=== PATIENT | male | born 1950 | race Caucasian/White ===

== ENCOUNTER 2019-11-11 09:07 | Outpatient (CLI) | payer MEDICARE, SELFPAY ==
--- NOTE | 2019-11-20 12:49 | SLEEP_ITS ---
BiPAP titration. DATE OF STUDY: 11/11/2019 REASON FOR THE STUDY: Complex sleep apnea HISTORY: This patient is a 69-year-old male, 73 inches tall, weighing 199 pounds with a body mass index of 26.3. On a prior study 10/02/2019, he underwent a full night CPAP titration for severe obstructive sleep apnea syndrome but had an incomplete titration. Central apneas emerged during the study. He had a maximum pressure of 13 cm with persistent central apneas, then was switched to bilevel . His AHI remained elevated at 20.1. On his initial study 08/20/2019, his AHI was 34.5 with the lowest sat of 84% on a home sleep test. On the initial study, he had 203 apneas, 105 were obstructive, 65 were central, and 33 were mixed. So on the first one, his sleep was evenly split so he definitely has complex sleep apnea. MEDICAL COMORBIDITIES: Snoring, heartburn, hypertension, gastroesophageal reflux disease. Kidney disease. MEDICATIONS: Losartan. HABITS: Daily caffeine, occasional alcohol. No nicotine. DESCRIPTION OF THE STUDY: On the Philadelphia Sleepiness Scale, the score was 15. This was conducted as a full night CPAP-BiPAP titration using the Rocketrip multiple channel system including EOG, EEG, submental EMG, EKG, nasal and oral airflow using thermistors, nasal pressure sensors, chest and abdominal belts, body position data, pulse oximetry, and video monitoring. The study was scored using CMS guidelines. Duration of the study was 482 minutes. Sleep time was 316 minutes. Sleep efficiency was 65.6%. Sleep latency was 7.9 minutes. REM latency was 102 minutes. He had 37 awakenings and spent 33.3% of the study awake after sleep onset 158 minutes. Sleep architecture showed 6.9% stage I sleep, 33.1% stage II sleep, 2.5% stage III sleep, and 24.2% stage REM. He spent 27.6% of the study supine, the remainder was nonsupine. He had 4 REM cycles that were increasingly denser and better consolidated throughout the study. The overall AHI was 44.2. The supine REM AHI was 64.7, which was due to 49 central apneas, 6 mixed apneas. The non-supine REM data showed 11 central apneas, 2 mixed apneas, 3 obstructive apneas for an index of 15.1. In supine non-REM, he had 1 obstructive apnea, 81 central apneas, 30 mixed apneas for an index of 84.4. In a nonsupine non-REM, he had 38 central apneas, 9 mixed apneas, 2 obstructive hypopneas, and 1 central hypopnea for an index of 24.6. The supine index was 76.7. Non-supine index was 21.4. There were 150 desaturations of 4% or greater for an index of 18.7. The REM desaturation index was 18.3, non-REM desaturation index 33.9. The mean saturation was 93%. Minimum saturation 87%. The patient spent 0.3 minutes below 88%, 0.1% of the study. AROUSALS: 181 arousals for an index of 22.5. He had 55 apneas causing arousals for an index of 6.8, 1 snore causing an arousal index of 0.1, 47 spontaneous arousals causing index of 5.9, 78 limb movements causing arousal for an index of 9.7. LIMB MOVEMENTS: 594 limb movements for an index of 112.8, which is exceedingly high. There was 1 periodic limb movement for an index of 0.2. EKG: Sinus rhythm with a mean heart rate of 68 and 2nd degree AV block noted at 2:44 am. There were 3 P-waves consecutively without transmission of a QRS. This also occurred on Epoch 748. EEG: Unremarkable. During this titration, the patient wore a small Sahra View full face mask, started at pressure of 12/8 and increased to 15/9. At that setting, the patient had 1 hour 43 minutes in bed, 56 minutes of REM or 42 minutes of non-REM, 21 central apneas, 3 mixed apneas, 4 hypopneas for an index of 17. Minimum saturation was 90%. The sleep efficiency was 96%. Review of the AHI at the various levels indicate that th
== END 2019-11-11 09:08 | disposition home or self-care (01) ==
LOC: ANHCSM 09:07
PROVIDERS: Visit Provider Family Medicine
DX: G47.30 Sleep apnea, unspecified (principal); G47.37 Central sleep apnea in conditions classified elsewhere
CPT/HCPCS: 95811

== ENCOUNTER 2020-01-15 08:35 | Outpatient (CLI) | payer MEDICARE, SELFPAY ==
--- NOTE | 2020-01-15 08:40 | ECHO_ITS ---
Patient Info Name: Lorenzo Dee Age: 69 years : 1950 Gender: Male Ht: 74 in Wt: 200 lbs BSA: 2.18 m2 HR: 75 bpm BP: 139 / 95 mmHg Technical Quality: Fair Exam Date: 01/15/2020 8:51 AM Exam Location: [facility] Patient Status: Outpatient Admit Date: 01/15/2020 Staff Ordering Physician: Albert Dey DO Medical Examiner: Roxie Baxter RDCS Attending Provider: Albert Dey DO Referring Physician: Tiburcio SAMANIEGO; Exam Type: CA echo doppler color flow Study Info Indications I35.1 - Nonrheumatic aortic (valve) insufficiency Complete two-dimensional, color flow and Doppler transthoracic echocardiogram is performed. Summary 1. Left ventricular chamber dimension is normal. 2. Left ventricular systolic function is normal, estimated at 60-65%. 3. The left ventricular diastolic function is grade I diastolic dysfunction. 4. E/e' 10 is mildly elevated. 5. There is mild aortic valve sclerosis. 6. There is mild to moderate aortic valve regurgitation. 7. No pulmonary hypertension, estimated pulmonary arterial systolic pressure is 15 mmHg. 8. The aortic root size at the sinus of Valsalva is moderately dilated at 4.5 cm. Left Ventricle E/e' 10 is mildly elevated. Left ventricular chamber dimension is normal. Left ventricular systolic function is normal, estimated at 60-65%. The left ventricular diastolic function is grade I diastolic dysfunction. Right Ventricle Right ventricular chamber dimension is normal. Right ventricular systolic function is normal. Left Atria Left atrial chamber dimension is normal. Right Atria Right atrial chamber dimension is normal. Aortic Valve The aortic valve is trileaflet. There is mild aortic valve sclerosis. There is no aortic valve stenosis. There is mild to moderate aortic valve regurgitation. Pulmonic Valve There is no pulmonic regurgitation. Mitral Valve There is no mitral valve stenosis. There is no mitral valve regurgitation. Tricuspid Valve There is no tricuspid valve regurgitation. No pulmonary hypertension, estimated pulmonary arterial systolic pressure is 15 mmHg. Pericardium/Pleural There is no pericardial effusion. Inferior Vena Cava Normal inferior vena cava with >50% collapse upon inspiration consistent with normal right atrial pressure, 5 mmHg. Aorta The aortic root size at the sinus of Valsalva is moderately dilated at 4.5 cm. Left Ventricular Outflow Tract Name Value Normal LVOT 2D LVOT Diameter 3.4 cm LVOT Doppler LVOT Peak Gradient 4 mmHg LVOT Mean Gradient 2 mmHg LVOT VTI 20 cm LVOT VTI/AV VTI Ratio 0.8 LVOT Stroke Volume 187 ml LVOT CO 12.5 l/min LVOT CI 5.7 l/min/m2 Pulmonic Valve Name Value Normal RVOT Doppler ----
== END 2020-01-15 08:36 | disposition home or self-care (01) ==
PROVIDERS: PCP Family Medicine; Visit Provider Internal Medicine Cardiovascular Disease
DX: I35.1 Nonrheumatic aortic (valve) insufficiency (principal)
CPT/HCPCS: 93306

== ENCOUNTER 2020-01-26 08:34 | Outpatient (CLI) | payer MEDICARE, SELFPAY ==
--- NOTE | ~2020-01-26 | CT_ITS ---
EXAMINATION: CTA chest DATE: 01/26/2020 09:43 INDICATION: Aortic root aneurysm TECHNIQUE: Computed tomographic angiography (CTA) of the chest was performed without and with 100 mL Omnipque-350 intravenous contrast. Maximum intensity projection 3D-reconstructions of the aorta and o ther arteries were constructed by the technologist on a separate workstation. The dose-length product (DLP) was 595.53 mGy-cm. Automated exposure control and iterative reconstruction technique were empl oyed. COMPARISON: None. FINDINGS: The supravalvular ascending aorta measures 4.0 x 3.8 cm. The ascending aorta measures 3.9 x 3.6 cm at the level of the main pulmonary artery. There is no dissection. There is chronic scarring/ atelectasis of the right lung. The lungs are free of acute opacities. There is no pleural effusion or pneumothorax. No pathologically enlarged thoracic lymph nodes are identified. The heart size is norm al. The gallbladder is surgically absent. Punctate calcifications of the spleen are consistent with h ealed granulomatous disease. There is a partially imaged 6.4 cm cyst of the right kidney. There is mi ld thoracic spondylosis. IMPRESSION: 1. Fusiform dilatation of the aortic root which measures 4 cm. No dissection. Reviewed, dictated and finalized at location B.
[2020-01-26 09:18] LABS: Estimated Glomerular Filt Rate 40
== END 2020-01-26 08:35 | disposition home or self-care (01) ==
LOC: ANHIMG 08:38
PROVIDERS: PCP Family Medicine; Visit Provider Internal Medicine Cardiovascular Disease
DX: I71.9 Aortic aneurysm of unspecified site, without rupture (principal)
CPT/HCPCS: 36415; 71275; Q9967

== ENCOUNTER 2022-12-24 08:37 | Outpatient (CLI) | payer MEDICARE, SELFPAY ==
--- NOTE | 2022-12-24 08:55 | ECHO_ITS ---
Patient Info Name: Lorenzo Dee Age: 72 years : 1950 Gender: Male Ht: 73 in Wt: 200 lbs BSA: 2.17 m2 HR: 60 bpm BP: 147 / 81 mmHg Technical Quality: Fair Exam Date: 12/24/2022 9:05 AM Exam Location: [facility] Patient Status: Outpatient Admit Date: 12/24/2022 Staff Ordering Physician: Albert Dey DO Clinical Team Manager: María Lau RDCS Attending Provider: Albert Dey DO Referring Physician: Tiburcio SAMANIEGO; Exam Type: CA echo doppler color flow Study Info Indications I35.1 - Nonrheumatic aortic (valve) insufficiency Complete two-dimensional, color flow and Doppler transthoracic echocardiogram is performed. Summary 1. Complete two-dimensional, color flow and Doppler transthoracic echocardiogram is performed. 2. Left ventricular chamber dimension is normal. 3. Left ventricular systolic function is normal, estimated at 65-70%. 4. The left ventricular diastolic function is grade I diastolic dysfunction. 5. E/e' 8 is minimally elevated. 6. There is mild aortic valve sclerosis. 7. There is mild to moderate aortic valve regurgitation. 8. There is trace mitral valve regurgitation. 9. No pulmonary hypertension, estimated pulmonary arterial systolic pressure is 38 mmHg. 10. The aortic root size at the sinus of Valsalva is moderately dilated at 4.5 cm. 11. The prox ascending aorta size is mildly dilated at 4.2 cm. Left Ventricle E/e' 8 is minimally elevated. Left ventricular chamber dimension is normal. Left ventricular systolic function is normal, estimated at 65-70%. The left ventricular diastolic function is grade I diastolic dysfunction. Right Ventricle Right ventricular chamber dimension is normal. Right ventricular systolic function is normal. Left Atria Left atrial chamber dimension is normal. Right Atria Right atrial chamber dimension is normal. Aortic Valve The aortic valve is trileaflet. There is mild aortic valve sclerosis. There is no aortic valve stenosis. There is mild to moderate aortic valve regurgitation. Pulmonic Valve There is no pulmonic regurgitation. Mitral Valve There is no mitral valve stenosis. There is trace mitral valve regurgitation. Tricuspid Valve There is no tricuspid valve regurgitation. No pulmonary hypertension, estimated pulmonary arterial systolic pressure is 38 mmHg. Pericardium/Pleural There is no pericardial effusion. Inferior Vena Cava Normal inferior vena cava with >50% collapse upon inspiration consistent with normal right atrial pressure, 5 mmHg. Aorta The aortic root size at the sinus of Valsalva is moderately dilated at 4.5 cm. The prox ascending aorta size is mildly dilated at 4.2 cm. Left Ventricular Outflow Tract Name Value Normal LVOT 2D LVOT Diameter 2.1 cm LVOT Doppler LVOT Peak Gradient 5 mmHg LVOT Mean Gradient 3 mmHg LVOT VTI 24 cm LVOT VTI/AV VTI Ratio 1.0 LVOT Stroke Volume 84 ml Pulmonic Valve
== END 2022-12-24 08:38 | disposition home or self-care (01) ==
PROVIDERS: PCP Family Medicine; Visit Provider Internal Medicine Cardiovascular Disease
DX: I35.1 Nonrheumatic aortic (valve) insufficiency (principal)
CPT/HCPCS: 93306

== ENCOUNTER 2023-11-19 08:19 | Outpatient (CLI) | payer MEDICARE, SELFPAY | END 2023-11-19 08:20 | disposition home or self-care (01) | PROVIDERS: PCP Family Medicine; Visit Provider Physician Assistant Medical | DX: H90.3 Sensorineural hearing loss, bilateral (principal) | CPT/HCPCS: 92557; 92567 ==

== ENCOUNTER 2023-11-19 09:36 | Outpatient (CLI) | payer MEDICARE, SELFPAY ==
--- NOTE | 2023-11-19 09:44 | ECG_ITS ---
Measurements Intervals Nice Rate: 79 P: 0 [place]: 196 QRS: -2 QRSD: 87 T: 59 QT: 385 QTc: 442 Interpretive Statements SINUS RHYTHM NONSPECIFIC T-WAVE ABNORMALITY NO PREVIOUS ECG AVAILABLE FOR COMPARISON Electronically Signed On 11-19-2023 13:51:00 BARK GRINDER by Ronen Calderón M.D.
[2023-11-19 10:28] LABS: Prothrombin Time 13.5 Seconds (11.1-14.7)
[2023-11-19 10:29] LABS: Partial Thromboplastin Time 29.7 SECONDS (22.3-36.8)
== END 2023-11-19 09:37 | disposition home or self-care (01) ==
LOC: ANHSURGERY 09:39
PROVIDERS: Anesthesiology; PCP Family Medicine; Visit Provider Surgery
DX: I12.9 Hypertensive chronic kidney disease with stage 1 through stage 4 chronic kidney disease, or unspecified chronic kidney disease (principal); N18.31 Chronic kidney disease, stage 3a; K43.6 Other and unspecified ventral hernia with obstruction, without gangrene; Z01.818 Encounter for other preprocedural examination
CPT/HCPCS: 36415; 85610; 85730; 86850; 86900; 86901; 93005

== ENCOUNTER 2023-11-27 01:00 | Day surgery (SDC) | payer MEDICARE, SELFPAY ==
[2023-11-13 09:24] VITALS: BMI 26.4
--- NOTE | 2023-11-13 09:47 | PC.NURSE ---
Report to the Outpatient Waiting Room, entrance under the green pavilion located off [facility], at time __7:30am on date __11/27/23 . Planned Procedure Time: __9:30am . Time changes happen often and if your time is changed the preop area will call you the afternoon before. - You and your visitor will be asked to self-screen and do not enter if you have any COVID symptoms. - A mask is optional within the hospital at this time. Patients may have clear liquids (water, carbonated beverages, clear teas, apple juice) until 3 hours prior to surgery with a maximum of 20 ounces. - No food from midnight until time of surgery. Take the following medications with a SIP of water the morning of surgery: ___NONE DO NOT STOP ANY OF YOUR OTHER PRESCRIPTION MEDICATIONS PRIOR TO SURGERY ?EXCEPT THE FOLLOWING Medications to discontinue per physician __HOLD ALL VITAMINS/SUPPLEMENTS 3 DAYS PRE-OP PER ANESTHESIA- LAST DOSE 11/23/23. DECREASE ASPIRIN 325MG TO 81MG DAILY 7 DAYS PRE-OP PER DR EDMOND. DECREASE DOSE STARTING 11/20/23. (PATIENT IS CALLING DR RILEY TO CONFIRM REDUCTION IS OKAY). Please no make-up, nail grenadian, hairspray, perfume, deodorant, or body powder the day of surgery. No jewelry (including any body piercings) or valuables the day of surgery, leave them at home. Please take a shower or bath the night before, or the morning of, surgery with an antibacterial soap. Wear comfortable, loose fitting clothing. - Jewelry must be removed prior to entering the operating room. Rings and piercings that are not removed may be cut off. - The hospital will not accept responsibility for valuables. - Please leave all valuables, including medications, at home the day of surgery. If you are going home after surgery, a licensed emt driver must drive you home. - NO public transportation without another adult if you receive anesthesia. - We recommend that an adult stay with you for 24 hours following discharge. - We also recommend that you do not drive, make important decision, drink alcoholic beverages, or take any drugs that were not prescribed by your health care provider for at least 24 hours after your discharge time. Follow any additional instructions given to you from your surgeon. If you or anyone in your household have experienced Covid symptoms in the past week, please notify your surgeon or the nurse liaison at the phone number below for possible testing. Telephone instructions given to ____PATIENT and asked if any additional questions and then verbalized understanding. Patient advised to call surgeon office or pre surgery nurse liaison [phone] if any additional questions.
--- NOTE | 2023-11-26 15:00 | WPDANESEPPF ---
Anes - Initial Pre Proc Eval Procedure: Operation Date: 11/27/23 09:30 Proposed Procedures p Robotic Assisted Laparoscopic Incarcerated Ventral Hernia Repair with Mesh, Possible Open - Papa Burton MD Date/Time: 11/26/23 15:00 Surgeon: Papa Burton MD Pre Op Diagnosis: Incarcerated Ventral Hernia Patient Data Age: 73 Gender: M Height: 1.85 m Weight: 91 kg Allergies Allergy/AdvReac Type Severity Reaction Status Date / Time No Known Allergies Allergy Mild Verified 11/27/23 09:02 Home Medications Medication Instructions Recorded Confirmed Type cholecalciferol (vitamin D3) 25 25 mcg PO DAILY 12/17/19 11/27/23 History mcg (1,000 unit) capsule aspirin 325 mg tablet,delayed 325 mg PO DAILY 10/26/21 11/27/23 History release azelastine 137 mcg (0.1 %) nasal 1 spray intranasal Q12H #30 mL 11/04/23 11/27/23 Rx spray aerosol omega 3-zld-zoo-fish oil 1,600 5 ml PO DAILY 11/07/23 11/27/23 History mg-500 mg-800 mg/5 mL oral liquid amlodipine 5 mg tablet 5 mg PO HS 11/13/23 11/27/23 History zolpidem 10 mg tablet 5 mg PO QHS PRN insomnia 11/13/23 11/27/23 History Patient hx anesthesia problems: none Family hx anesthesia problems: none Results Review: All pre-operative results and documents have been reviewed as part of the pre-operative evaluation. [facility] Past Medical History Medical History (Updated 11/26/23 @ 15:00 by Chucky Medeiros DO) Aortic regurgitation Broken wrist Complex sleep apnea syndrome Dyslipidemia HTN (hypertension) PAF (paroxysmal atrial fibrillation) Plantar fasciitis Second degree heart block Stage 3a chronic kidney disease Umbilical hernia Surgical History Surgical History History of cholecystectomy History of hernia surgery Family History Family History Father Carcinoma of colon Sibling Family history of primary malignant neoplasm of liver Family history of lymphoma Sibling Acute myocardial infarction Social History Social History (Updated 11/21/23 @ 08:37 by Tere Connelly CMA) Smoking packs per day: 1 Smoking cigarettes per day: 20.0 Years smoked: 10 Smoking pack-years: 10.00 Smoking status: Former smoker Tobacco type: cigarettes Second hand tobacco smoke exposure: No Smoking end date: 04/13/88 Alcohol intake: current Drinks per week: 14 Substance use: never Substance use type: does not use Do You Feel Safe in your Home?: Yes Lack of Transportation: No Lack of Food: Never True Current Housing: I Have Housing Concerned About Future Housing: No Difficulty Paying Gas/Electric Bills: No Difficulty Paying for Meds: No Currently Unemployed: No Education: Master's Degree or Higher Difficulty w/ Childcare or Family Care: No Living arrangements: with family Additional living arrangements comments: Occupation/Education: retired Gender identity (if verbalized by the patient): Male Spiritual care concerns: No Agree to blood products: Yes Anes - Eval Final PreProcedure Day of Procedure 11/26/23 15:00 Patient weight: overweight Heart: regular rate and rhythm Lungs: clear to auscultation Airway: Mallampati scale class III Neurological: alert and oriented Last oral intake: >/= 8 hours ASA classification: III Emergent: no Anesthetic plan: proceed Anesthesia type and monitoring: general ETT and standard monitoring Results Review: All pre-operative results and documents have been reviewed as part of the pre-operative evaluation. Informed Consent: The patient's anesthetic plan and its attendant risks and benefits were discussed with the patient/family/POA. Questions were solicited and answers provided to the satisfaction of the patient/family/POA.
[2023-11-27] VITALS (11 sets, daily range): BP systolic 115–139; BP diastolic 67–88; PULSE 58–80; RESP 14–17; TEMP 36.1–36.6; O2SAT 91–97
[2023-11-27] MEDS: LACTATED RINGERS 1,000 ML 30 ML IV CONT ×2 (08:30→13:38)
[2023-11-27] MEDS: KETOROLAC 15 MG/ML VIAL (*BKC) IV PUSH ×2 (08:45→15:18)
[2023-11-27] MEDS: ACETAMINOPHEN 500 MG TABLET 1000 MG PO ×2 (08:45→15:30)
--- NOTE | 2023-11-27 09:43 | WPDHPUPDATE1 ---
History and Physical Update Update Date/Time: 11/27/23 09:43 History and Physical has been reviewed, including an updated exam of the patient. There are NO changes in the patient's condition. Risks, benefits, and alternatives have been discussed and questions answered. Patient agrees to proceed with procedure.
[2023-11-27] MEDS: ceFAZolin 2 GM/D5W 50 ML 2 GM/50 ML BAG IVPB (09:51)
[2023-11-27] MEDS: LIDO 1%/EPINEPHRINE 1:100,000 50 ML VIAL 30 ML INFILTRATE (10:39)
[2023-11-27] MEDS: oxyCODONE HCL (*CRX) 5 MG TAB IR PO (14:53)
[2023-11-27] MEDS: fentaNYL CITRATE INJ (*CRX) 100 MCG/2 ML VIAL 25 MCG IV PUSH ×4 (14:55→15:08)
--- NOTE | 2023-11-27 19:41 | W.PM.PROC2 ---
Procedure Note - Detailed Date of Procedure 11/27/23 Pre-op Diagnosis Incarcerated Ventral Hernia Post-op Diagnosis Same Procedure Performed Robotic assisted laparoscopic incarcerated periumbilical ventral hernia repair with transabdominal preperitoneal (CINDY) placement of Bard soft mesh. Hernia defect equals 2x1cm Surgeon Papa Burton MD Content Production Specialist Willi Mckeon, GLENYS Anesthesia General Indications Patient is a 73-year-old gentleman who has a periumbilical ventral hernia with incarcerated contents most likely omentum or preperitoneal fat. He has had no bowel obstructive-type symptoms. Assess a very large associated epigastric abdominal wall diastasis with separation of the thick muscle edges about 5cm. Presents now for elective repair of the periumbilical ventral incarcerated hernia with mesh reinforcement via chronic assisted laparoscopic approach with mesh. Findings Patient had a umbilical ventral hernia defect measuring 2x1cm. Incarcerated within the defect was omentum which was completely viable. There were no bowel adhesions to the anterior abdominal wall. The patient did have a epigastric abdominal wall diastasis with separation of the edges of the muscle about 4- 5cm. Description of Procedure after informed consent was obtained patient brought to the operating room was placed supine position and general endotracheal anesthesia was administered. A Ellington catheter was placed decompress the bladder and the abdomen was then prepped and draped usual sterile fashion. A time-out was then performed correctly identifying the patient as well as procedure to be performed. He was given Ancef for perioperative IV antibiotics. The procedure to the abdomen left upper quadrant utilizing a 10mm Optiview port. Once inside the abdomen I insufflated to adequate pneumoperitoneum of 15mmHg CO2. looking in the periumbilical region there was a small fascial defect with incarcerated omentum within the defect. I then placed additional robotic trocar ports the left lateral abdominal wall under direct visualization. The Mysterioi robot was then brought to the patient's bedside on the right side and docked to the operative bed. The robotic arms were attached the robotic ports. robotic instruments were advanced under direct visualization and then I scrubbed out the procedure and sent down the robotic console to perform the dissection robotically. I 1st proceeded to remove the incarcerated omentum from the hernia defect. This was done easily with some traction utilizing robotic grasper. The omentum was completely viable. I then measured the defect was 2x1cm. I then decided to perform a transabdominal preperitoneal placement (CINDY) of the mesh. In the midportion left lateral abdominal wall I started a preperitoneal flap at the level of the xiphoid process and extended it caudally to the lower abdomen. With robotic sidney I could perform very careful dissection the peritoneum from the overlying anterior rectus fascia. Careful not to make any large holes in the peritoneum. Once I reached the hernia sac I then dissected the hernia sac out of the defect my dissection was carried across the midline to the right mid and lateral abdominal wall. Once I had this old preperitoneal flap created and then proceeded to close the hernia defect utilizing a #1 Stratafix PDS suture. This was started about 4cm below the periumbilical fascial defect and run all the way up to the xiphoid process imbricating the weekend fascia which was causing the epigastric abdominal wall diastasis. Once this was finished I then measured to see how being a piece of mesh that would need and it appeared that I would need a piece of mesh it was 30cm in length by 15cm in width. I chose a very large piece of Bard soft mesh and cut it to the appropriate length and width. The mesh was then placed into the abdomen through the 10mm bedside mechanic's assistant port. It was then traveled in placed
== END 2023-11-27 16:43 | disposition home or self-care (01) ==
PROVIDERS: PCP Family Medicine; Visit Provider Surgery
PROC: (CPT 49592; principal; 2023-11-27 09:30)
DX: K43.6 Other and unspecified ventral hernia with obstruction, without gangrene (principal); M62.08 Separation of muscle (nontraumatic), other site; I12.9 Hypertensive chronic kidney disease with stage 1 through stage 4 chronic kidney disease, or unspecified chronic kidney disease; N18.31 Chronic kidney disease, stage 3a; I48.0 Paroxysmal atrial fibrillation; G47.39 Other sleep apnea; I44.1 Atrioventricular block, second degree; E78.5 Hyperlipidemia, unspecified; Z79.82 Long term (current) use of aspirin; Z87.891 Personal history of nicotine dependence
CPT/HCPCS: 49592; S2900; 36415; 85610; 85730; 86850; 86900; 86901; 93005; A9270; C1781; J0690; J1100; J1170; J1885; J2405; J2704; J3010; J7120

== ENCOUNTER 2023-12-01 05:11 | Inpatient (IN) | payer MEDICARE, SELFPAY ==
[2023-12-01] VITALS (12 sets, daily range): BP systolic 140–162; BP diastolic 87–100; PULSE 87–109; RESP 17–25; TEMP 36–36.9; O2SAT 91–95; BMI 30.1
--- NOTE | ~2023-12-01 | CT_ITS ---
EXAMINATION: CT abdomen pelvis w con DATE: 12/01/2023 06:29 INDICATION: Abdominal pain TECHNIQUE: Computed tomography (CT) of the abdomen and pelvis was performed with 100 mL Omnipaque-350 intravenous contrast. Automated exposure control and iterative reconstruction technique were employe d. The dose-length product was 880.11 mGy-cm. COMPARISON: 12/27/2018 FINDINGS: Calcified right middle lobe nodule, calcified right hilar lymph nodes and a few calcified splenic nod ules, all consistent with old granulomatous disease. Region of consolidation at the bilateral lower l obes and favor atelectasis over pneumonia. Cardiomegaly. No pericardial or pleural effusion. Cholecys tectomy clips at the gallbladder fossa. Diffuse hepatic steatosis. Pancreas and bilateral adrenal gla nds are normal. There are bilateral renal cysts the largest on the right measuring 5.8 cm. Normal isabella endix. There is moderate colonic diverticulosis with a sigmoid predominance. There is no adjacent in flammatory change to suggest diverticulitis. There is fluid scattered throughout bowel which is mild ly dilated in places but with intervening decompressed segments which tapers distally with no discret e transition point to suggest obstruction is more likely represents a postoperative ileus. Postoperat shu changes with small amount of scattered gas in the anterior abdominal wall related to the reported recent incarcerated ventral hernia repair. Bladder is normal. Small bilateral fat-containing inguina l hernias. Minimal amount of scattered ascites in the abdomen and pelvis. No abscess or free intraper itoneal gas. No pathologically enlarged abdominal or pelvic lymphadenopathy. Mild thoracolumbar spond ylosis with bridging osteophytes at multiple levels consistent with diffuse idiopathic skeletal hyper ostosis (DISH). IMPRESSION: 1. Mildly dilated small bowel without discrete transition point and favor postoperative ileus over ob struction with additional postoperative changes along the anterior abdominal wall. 2. Small region of consolidation at the bilateral lung bases with appearance favoring atelectasis ove r pneumonia. Reviewed, dictated and finalized at location A. VERER IMPRESSION: 1. Mildly dilated small bowel without discrete transition point and favor posto perative ileus over obstruction with additional postoperative changes along the anterior abdominal wall. 2. Small region of consolidation at the bilateral lung bases with appearance fa voring atelectasis over pneumonia.
--- NOTE | ~2023-12-01 | XR_ITS ---
EXAMINATION: XR chest 1V portable DATE: 12/01/2023 06:17 INDICATION: Abdominal pain TECHNIQUE: frontal view of the chest was obtained. COMPARISON: Chest CT dated 03/27/2020 FINDINGS: Calcite nodules in the right lower lung zone and calcified right hilar lymph nodes consistent with ol d granulomatous disease. Mild streaky opacities at the bilateral lung bases and favor atelectasis ove r pneumonia. No pleural effusion or pneumothorax. Heart size within normal limits for AP technique. W idening of the mediastinum corresponding to a tortuous thoracic aorta which is exaggerated by slight rightward rotation of the patient. Cholecystectomy clips in right upper quadrant. IMPRESSION: 1. Mild streaky bibasilar opacities and favor atelectasis over pneumonia. Reviewed, dictated and finalized at location A. ET MILL OPERATOR
--- NOTE | 2023-12-01 05:13 | ECG_ITS ---
Measurements Intervals [place] Rate: 106 P: 21 IA: 203 QRS: 6 QRSD: 79 T: 73 QT: 299 QTc: 397 Interpretive Statements SINUS TACHYCARDIA NONSPECIFIC T-WAVE ABNORMALITY ABNORMAL ECG COMPARED TO ECG 11/19/2023 09:56:57 NO SIGNIFICANT CHANGE Electronically Signed On 12-01-2023 8:11:57 COAL TRAM DRIVER by Lew Gonzalez M.D.
[2023-12-01] MEDS: SODIUM CHLORIDE 0.9% IV 1,000 ML 999 ML IV CONT ×2 (05:34→06:27)
[2023-12-01] MEDS: ONDANSETRON INJ 4 MG/2 ML VIAL IV PUSH ×3 (05:41→12:59)
[2023-12-01] MEDS: MORPHINE SULFATE (*CRX) 4 MG/ML INJ IV PUSH (05:42)
[2023-12-01 05:48] LABS: Basophils Percent Auto 0.2 % (0.2-1.2); Eosinophils Percent Auto 0.3 % (0-4.4); Hematocrit 50.4 % (42.0-52.0); Hemoglobin 17.2 g/dL (14.0-18.0); Immature Granulocyte Absolute 0.05 K/mm3 (0.00-0.031); Immature Granulocyte Percent A 0.4 % (0-0.5); Lymphocytes Absolute Auto 1.69 K/mm3 (0.9-3.2); Lymphocytes Percent Auto 14.3 % (18.3-44.2); Mean Corpuscular HGB Conc 34.1 g/dl (32-36); Mean Corpuscular Hemoglobin 30.8 pg (26-34); Mean Corpuscular Volume 90.3 fl (80-100); Mean Platelet Volume 9.2 fl (7.4-10.4); Monocytes Absolute Auto 0.6 K/mm3 (0.1-0.6); Monocytes Percent Auto 5.1 % (2.6-8.5); Neutrophils Absolute Auto 9.4 K/mm3 (1.3-6.7); Neutrophils Percent Auto 79.7 % (45.5-73.1); Platelet Count Result 228 k/mm3 (150-375); Red Blood Count 5.58 M/mm3 (4.6-6.20); Red Cell Distribution Width 13.2 % (11.5-14.5); White Blood Count 11.8 K/mm3 (4.5-10.0)
[2023-12-01 05:59] LABS: Lactic Acid Reflex 1.6 mmol/L (0.7-2.0)
[2023-12-01 06:01] LABS: Alanine Aminotransferase 47 U/L (6-50); Albumin Level 4.3 g/dL (3.5-5.1); Alkaline Phosphatase 92 U/L (38-126); Anion Gap 12 mmol/L (8-16); Aspartate Amino Transferase 43 U/L (17-59); Bilirubin,Total 2.3 mg/dL (0.2-1.3); Blood Urea Nitrogen 29 mg/dL (9-20); CRP 5.5 mg/dL (<1.0); Calcium 9.2 mg/dL (8.4-10.2); Carbon Dioxide 19 mmol/L (22-30); Chloride 106 mmol/L (98-107); Estimated CRCL calculation 49 ml/min; Estimated Glomerular Filt Rate 50; Glucose 184 mg/dL (65-110); Lipase 69 U/L (23-300); Potassium 3.7 mmol/L (3.4-5.0); Sodium 137 mmol/L (137-145)
[2023-12-01 06:10] LABS: Troponin I < 0.012 ng/mL (0.000-0.034)
--- NOTE | 2023-12-01 06:11 | ED.NAVMDI ---
HPI - Nausea/Vomiting/Diarrhea General Chief complaint: Abdominal Pain Stated complaint: abd pain Time Seen by Provider: 12/01/23 05:13 Source: patient and family Limitations: no limitations History of Present Illness HPI Narrative: Patient is a 73-year-old male presents to the emergency department accompanied by and son for nausea and vomiting. Patient states he woke up at 5:10 a.m. this morning with nausea and vomiting with a vomit appearing dark green and he has had 2 episodes in total. Patient denies feeling nauseous currently. Patient states that he has been having pain in his epigastric region ever since he had surgery on the when she had a ventral hernia repair. Patient sees been wearing his abdominal binder at all times. Patient denies sick contacts or anyone having some symptoms to him. Patient says last bowel movement was on Saturday prior to the surgery. Patient is to passing gas regularly. Patient notes that the pain is a stabbing and sharp sensation in the epigastric region, nonradiating, has not changed much since the surgery, states that it is overall present at a very low level while resting and seems to get worse with movement and the was has not noticed anything making it better or worse. Patient was that he was taking oxycodone revealing stop taking approximate 30 hours ago and hopes that that would help him have a bowel movement. Patient stop taking Motrin as well around the same time is otherwise just taking Tylenol. Patient denies history of bowel obstructions. Patient denies urinary discomfort, fever, chest pain, difficulty breathing, recent injuries, numbness, weakness. Patient denies any antibiotic use. Patient denies abdominal distension seen is adamant seems to be the same size it has been. Patient is to wear BiPAP at night and otherwise does not use oxygen. Related Data Home Medications Medication Instructions Recorded Confirmed cholecalciferol (vitamin D3) 25 25 mcg PO DAILY 12/17/19 11/27/23 mcg (1,000 unit) capsule aspirin 325 mg tablet,delayed 325 mg PO DAILY 10/26/21 11/27/23 release omega 4-fxn-xxb-fish oil 1,600 5 ml PO DAILY 11/07/23 11/27/23 mg-500 mg-800 mg/5 mL oral liquid amlodipine 5 mg tablet 5 mg PO HS 11/13/23 11/27/23 zolpidem 10 mg tablet 5 mg PO QHS PRN insomnia 11/13/23 11/27/23 Allergies Allergy/AdvReac Type Severity Reaction Status Date / Time No Known Allergies Allergy Mild Verified 11/27/23 09:02 Review of Systems Review of Systems: A 10 system review of systems was completed on the patient and is negative except for what is stated in the HPI. Nursing and ancillary documentation was reviewed. [facility] Past Medical History Medical History (Updated 12/01/23 @ 06:51 by Randall Padilla DO) Aortic regurgitation Broken wrist Complex sleep apnea syndrome Dyslipidemia HTN (hypertension) PAF (paroxysmal atrial fibrillation) Plantar fasciitis Second degree heart block Stage 3a chronic kidney disease Umbilical hernia Surgical History Surgical History History of cholecystectomy History of hernia surgery Family History Family History Father Carcinoma of colon Sibling Family history of primary malignant neoplasm of liver Family history of lymphoma Sibling Acute myocardial infarction Social History Social History (Updated 11/21/23 @ 08:37 by Tere Connelly [facility]) Smoking packs per day: 1 Smoking cigarettes per day: 20.0 Years smoked: 10 Smoking pack-years: 10.00 Smoking status: Former smoker Tobacco type: cigarettes Second hand tobacco smoke exposure: No Smoking end date: 04/13/88 Alcohol intake: current Drinks per week: 14 Substance use: never Substance use type: does not use Do You Feel Safe in your Home?: Yes Lack of Transportation: No Lack of Food: Never True Brad
[2023-12-01 06:24] LABS: Influenza A QL RT-PCR Negative (Negative); Influenza B QL RT-PCR Negative (Negative); RSV RNA, RT-PCR Negative (Negative); SARS-CoV-2 RNA PCR Negative (Negative)
--- NOTE | 2023-12-01 07:09 | PC.NURSE ---
Report given to ARTHUR corral at this time.
--- NOTE | 2023-12-01 07:42 | ECG_ITS ---
Measurements Intervals [place] Rate: 92 P: 14 [place]: 213 QRS: -1 QRSD: 105 T: 118 QT: 388 QTc: 482 Interpretive Statements SINUS RHYTHM WITH FIRST DEGREE AV BLOCK MINIMAL VOLTAGE CRITERIA FOR LVH, CONSIDER NORMAL VARIANT [MEETS CRITERIA IN ONE OF: R(aVL), S(V1), R(V5), R(V5/V6)+S(V1)] NONSPECIFIC T-WAVE ABNORMALITY ABNORMAL ECG COMPARED TO ECG 12/01/2023 05:23:36 [place] INTERVAL IS LONGER Electronically Signed On 12-01-2023 8:14:58 DATA ENTRY SUPERVISOR by Lew Gonzalez M.D.
[2023-12-01 08:21] LABS: Appearance Urine Clear (Clear); Bacteria Urine None Seen /hpf; Bilirubin Urine Negative (Negative); Blood Urine Negative (Negative); Color Urine Yellow (Yellow); Glucose Urine UA Negative (Negative); Ketones Urine Trace mg/dL (Negative); Leukocyte Esterase Ur Negative LEU/UL (Negative); Nitrate Urine Negative (Negative); Non Pathogenic Casts 0-2; Protein Urine 1+ mg/dL (Negative); RBC Urine 0-2 /hpf (0-2); Squamous Epithelial Cell Urine None seen /hpf (Few); WBC Urine 0-5 /hpf
[2023-12-01 08:24] LABS: Add Urine Microscopic? YES; Specific Grav Ur 1.085 (1.001-1.035)
[2023-12-01 08:36] LABS: Troponin I < 0.012 ng/mL (0.000-0.034)
--- NOTE | 2023-12-01 09:11 | ADMGEN ---
This patient, Lorenzo Dee, was admitted to 3 [facility] Surg Room 313-01 @ 0911. Patient/family oriented to hospital policies and general routines including ID bracelet, bed and alarms, visiting hours, pain management, procedures, bathroom and other care routines, personal items, smoking policy, room service/diet, and visiting hours. Information on how to activate the Rapid Response Team has been discussed. Patient/Family are encouraged to report perceived risks to care and to ask questions if they do not understand what they are told or what they should do.
[2023-12-01] MEDS: SODIUM CHLORIDE 0.9% IV 1,000 ML 125 ML IV CONT ×2 (10:14→17:29)
[2023-12-01] MEDS: ACETAMINOPHEN 325 MG TABLET 650 MG PO (10:14)
--- NOTE | 2023-12-01 10:20 | PM.IMHP ---
H&P: HPI History of Present Illness Date/Time: 12/01/23 10:20 Chief Complaint: Intractable nausea and vomiting Narrative: The patient is a 73-year-old male presenting to emergency department complaining of intractable nausea and vomiting since surgery. The patient underwent robotic assisted incarcerated ventral hernia repair on 11/[address] Burton, please see full operative report for details of that procedure. Postoperatively, the patient did well was discharged home. The patient reports since going home he has become progressively more distended and uncomfortable. The patient reports that he has really not had any bowel function since surgery. The patient reports over the last 24-48 hours he has had intractable nausea with multiple episodes of emesis. Workup in the emergency department, including imaging, is significant for likely postoperative ileus. Review of Systems Review of Systems: All systems reviewed & are unremarkable except as noted in HPI and below PMFSH Past Medical History Medical History Aortic regurgitation Broken wrist Complex sleep apnea syndrome Dyslipidemia HTN (hypertension) PAF (paroxysmal atrial fibrillation) Plantar fasciitis Second degree heart block Stage 3a chronic kidney disease Umbilical hernia Surgical History Surgical History History of cholecystectomy History of hernia surgery Family History Family History Father Carcinoma of colon Sibling Family history of primary malignant neoplasm of liver Family history of lymphoma Sibling Acute myocardial infarction Social History Social History Smoking packs per day: 1 Smoking cigarettes per day: 20.0 Years smoked: 10 Smoking pack-years: 10.00 Smoking status: Never smoker Tobacco type: cigarettes Second hand tobacco smoke exposure: No Smoking end date: 04/13/88 Alcohol intake: current Drinks per week: 14 Substance use: never Substance use type: does not use Do You Feel Safe in your Home?: Yes Lack of Transportation: No Lack of Food: Never True Current Housing: I Have Housing Concerned About Future Housing: No Difficulty Paying Gas/Electric Bills: No Difficulty Paying for Meds: No Currently Unemployed: No Education: Master's Degree or Higher Difficulty w/ Childcare or Family Care: No Living arrangements: with family Additional living arrangements comments: Occupation/Education: retired Gender identity (if verbalized by the patient): Male Spiritual care concerns: No Agree to blood products: Yes Meds Home Medications and Allergies Home Medications Medication Instructions Recorded Confirmed Type cholecalciferol (vitamin D3) 25 25 mcg PO DAILY 12/17/19 12/01/23 History mcg (1,000 unit) capsule aspirin 325 mg tablet,delayed 325 mg PO DAILY 10/26/21 12/01/23 History release azelastine 137 mcg (0.1 %) nasal 1 spray intranasal Q12H #30 mL 11/04/23 12/01/23 Rx spray aerosol omega 5-qof-qwz-fish oil 1,600 5 ml PO DAILY 11/07/23 12/01/23 History mg-500 mg-800 mg/5 mL oral liquid amlodipine 5 mg tablet 5 mg PO HS 11/13/23 12/01/23 History zolpidem 10 mg tablet 5 mg PO QHS PRN insomnia 11/13/23 12/01/23 History Allergies Allergy/AdvReac Type Severity Reaction Status Date / Time No Known Allergies Allergy Mild Verified 11/27/23 09:02 Vital Signs Vital Signs - 24 hr 12/01/23 05:10 12/01/23 06:45 12/01/23 06:45 Temperature 36.6 C Pulse Rate 109 H 87 Respiratory Rate 24 H 20 Blood Pressure 140/91 H 156/95 H Pulse Oximetry 92 95 95 Oxygen Delivery Room Air Nasal Cannula Oxygen Flow Rate 3 12/01/23 05:46 12/01/23 07:12 12/01/23 08:57 Temperature 36.6 C Pulse Rate 97 89 89 Respiratory Rate 18 25 H
[2023-12-01 12:01] LABS: Troponin I < 0.012 ng/mL (0.000-0.034)
--- NOTE | 2023-12-01 12:43 | PM.IMCN ---
Assessment and Plan Assessment and plan (1) Sepsis: Qualifiers: Sepsis acute organ dysfunction status: unspecified Sepsis type: sepsis due to unspecified organism Qualified Code(s): A41.9 - Sepsis, unspecified organism Code(s): A41.9 - Sepsis, unspecified organism Status: Acute Assessment and Plan: - meets SIRS criteria: HR and RR - lactic acid 1.6 - given 2L bolus - blood cultures pending - suspect HR and RR elevated secondary to dehydration, hold on initiation of atb - trend WBC (2) Ileus: Code(s): K56.7 - Ileus, unspecified Status: Acute Assessment and Plan: - admission under General Surgery, initial evaluation by Ramakrishna ROSALES - CT of abd/pelvis: 1. Mildly dilated small bowel without discrete transition point and favor postoperative ileus over obstruction with additional postoperative changes along the anterior abdominal wall. 2. Small region of consolidation at the bilateral lung bases with appearance favoring atelectasis over pneumonia. - EKG, initial: sinus tachycardia, nonspecific t-wave abnormality, when compared to previous there are no significant changes - encourage ambulation - continued use of IS - start clear liquids, assess for toleration - pain control: tyl, norco, and morphine. 1 time dose of Toradol for pain and antiinflammatory effects. - antiemetics zofran ordered given 1 dose of Reglan without relief and patient developed rigors shortly after, unclear if related. Exchange to Phenergan. - monitor I&Os - reviewed imaging, added stool softener - PPI added - no current indication for NG tube. tolerating small sips of water, nausea without emesis, and no obstruction on imaging. consider if patient begins to profusely vomit. (3) Stage 3a chronic kidney disease: Code(s): N18.31 - Chronic kidney disease, stage 3a Status: Acute Assessment and Plan: - creatinine 1.4 - BUN 29, GFR 50, ECC 49 - creatinine 1.7 in January of 2020 - given IV fluids: 2L of NS, now at 125 mL/hr - continue to monitor renal function (4) HTN (hypertension): Qualifiers: Hypertension type: unspecified Qualified Code(s): I10 - Essential (primary) hypertension Code(s): I10 - Essential (primary) hypertension Status: Acute Assessment and Plan: - chronic, mildly elevated at present - continue home medications: amlodipine - monitor (5) Complex sleep apnea syndrome: Code(s): G47.31 - Primary central sleep apnea Status: Acute Assessment and Plan: - continue home CPAP Plan Here with likely ileus post-robotic hernia repair. Clear liquids, IS, and ambulation. Continue pain control and antiemetics. Home Meds/Chronic Conditions - OTC/Supplements: continue ASA, Astelin spray, vitamin D3 - insomnia: continue Ambien Diet: clear liquids GI Prophylaxis: pantoprazole DVT Prophylaxis: SCDs Lines: pIV Code Status: Full Code HPI Date of Consult Consult date: 12/01/23 Requesting Physician: Tiffanie Durbin MD Primary Care Provider: Bere Echeverria MD Consult Narrative Reason for consult: N/V, Abdominal Pain Narrative: 73 y/o M presents here with nausea, vomiting, and abdominal pain with PMH of recent hernia surgery on 11/27, pAFib, HTN, CKD S3, sleep apnea, aortic regurgitation, dyslipidemia, and second degree heart block. Patient presents here for evaluation of nausea, vomiting, and epigastric pain with recent incarcerated ventral hernia repair performed here at [facility] by Micheal ROSALES. No immediate post-operative complications were identified and patient was discharged without incident same day. Patient arrived to the ED this morning for evaluation of acute onset of vomiting that started yesterday afternoon and reoccurred at 05:00 this morning. Emesis is bilious and non-bloody. Nausea has been present since surgery on the . Reports compliance with abdominal binder. Pain worsens with movem
[2023-12-01] MEDS: PANTOPRAZOLE SODIUM IV 40 MG VIAL IV PUSH (14:21)
[2023-12-01] MEDS: hydrALAZINE HCL 20 MG/ML VIAL 10 MG IV PUSH (15:49)
[2023-12-01] MEDS: DOCUSATE SODIUM 100 MG CAPSULE PO (15:49)
[2023-12-01] MEDS: HYDROcodone/acetaminophen (*CRX) 5-325 MG TABLET 1 TAB PO (15:50)
[2023-12-01] MEDS: METOCLOPRAMIDE HCL INJ 10 MG/2 ML VIAL IV PUSH (17:30)
[2023-12-01] MEDS: KETOROLAC 30 MG/ML VIAL (*BKC) IV PUSH (20:25)
[2023-12-01] MEDS: amLODIPine BESYLATE 5 MG TABLET PO (20:25)
[2023-12-01] MEDS: ZOLPIDEM TARTRATE (*CRX) 5 MG TABLET PO (20:31)
[2023-12-02] MEDS: SODIUM CHLORIDE 0.9% IV 1,000 ML 125 ML IV CONT (03:15)
[2023-12-02 04:55] VITALS: BP 138/84; PULSE 87; RESP 20; TEMP 36.2; O2SAT 92
[2023-12-02] MEDS: ASPIRIN 325 MG ENTERIC TABLET PO (08:20)
[2023-12-02] MEDS: CHOLECALCIFEROL 1,000 UNITS TABLET 1000 UNITS PO (08:20)
[2023-12-02] MEDS: PANTOPRAZOLE SODIUM IV 40 MG VIAL IV PUSH (08:20)
[2023-12-02] MEDS: AZELASTINE HCL NASAL 0.1% 137 MCG/SPR 30 ML BTL 1 SPRAY NASAL ×2 (08:22→20:57)
[2023-12-02 09:00] LABS: Hematocrit 42.8 % (42.0-52.0); Hemoglobin 14.6 g/dL (14.0-18.0); Mean Corpuscular HGB Conc 34.1 g/dl (32-36); Mean Corpuscular Hemoglobin 31.2 pg (26-34); Mean Corpuscular Volume 91.5 fl (80-100); Mean Platelet Volume 8.9 fl (7.4-10.4); Platelet Count Result 168 k/mm3 (150-375); Red Blood Count 4.68 M/mm3 (4.6-6.20); Red Cell Distribution Width 13.4 % (11.5-14.5); White Blood Count 8.1 K/mm3 (4.5-10.0)
[2023-12-02 09:10] LABS: Anion Gap 5 mmol/L (8-16); Blood Urea Nitrogen 30 mg/dL (9-20); Calcium 8.2 mg/dL (8.4-10.2); Carbon Dioxide 20 mmol/L (22-30); Chloride 112 mmol/L (98-107); Estimated CRCL calculation 57 ml/min; Estimated Glomerular Filt Rate 60; Glucose 111 mg/dL (65-110); Potassium 3.7 mmol/L (3.4-5.0); Sodium 137 mmol/L (137-145)
[2023-12-02] MEDS: POTASSIUM CHLORIDE INJ 40 MEQ in SODIUM CHLORIDE 0.9% IV 500 ML 130 MEQ IVPB (10:37)
[2023-12-02] MEDS: BISACODYL 10 MG SUPPOSITORY RECTAL (10:37)
[2023-12-02 13:24] VITALS: BP 146/76; PULSE 90; RESP 16; TEMP 36.4; O2SAT 95
--- NOTE | 2023-12-02 14:02 | PM.IMPN ---
Progress Note: A&P Assessment and Plan (1) Ileus: Code(s): K56.7 - Ileus, unspecified Status: Acute Assessment and Plan: - admission under General Surgery, initial evaluation by Ramakrishna ROSALES - CT of abd/pelvis: 1. Mildly dilated small bowel without discrete transition point and favor postoperative ileus over obstruction with additional postoperative changes along the anterior abdominal wall. 2. Small region of consolidation at the bilateral lung bases with appearance favoring atelectasis over pneumonia. - EKG, initial: sinus tachycardia, nonspecific t-wave abnormality, when compared to previous there are no significant changes - encourage ambulation - continued use of IS - start clear liquids, assess for toleration - analgesics and antiemetics - monitor I&Os - reviewed imaging, added stool softener - PPI added (2) Sepsis: Qualifiers: Sepsis type: sepsis due to unspecified organism Sepsis acute organ dysfunction status: unspecified Qualified Code(s): A41.9 - Sepsis, unspecified organism Code(s): A41.9 - Sepsis, unspecified organism Status: Acute Assessment and Plan: - meets SIRS criteria: HR and RR - lactic acid 1.6 - given 2L bolus - blood cultures no growth to date - suspect HR and RR elevated secondary to dehydration - trend WBC Resolved. (3) Stage 3a chronic kidney disease: Code(s): N18.31 - Chronic kidney disease, stage 3a Status: Acute Assessment and Plan: - creatinine 1.2 - creatinine 1.7 in January of 2020 - continue to monitor renal function (4) HTN (hypertension): Qualifiers: Hypertension type: unspecified Qualified Code(s): I10 - Essential (primary) hypertension Code(s): I10 - Essential (primary) hypertension Status: Acute Assessment and Plan: - chronic, mildly elevated at present - continue home medications: amlodipine - monitor (5) Complex sleep apnea syndrome: Code(s): G47.31 - Primary central sleep apnea Status: Acute Assessment and Plan: - continue home CPAP Subjective Date/time seen: 12/02/23 14:02 Interval history: Patient's pain is much improved. He is passing gas but has not bowel movement yet. His labs and vital signs are stable. Exam Narrative: GENERAL: Comfortable, no acute distress HENMT: moist mucous membranes EYES: EOM intact b/l NECK: no lymphadenopathy RESPIRATORY: clear to auscultation CARDIO: RRR GI: abdominal binder in place, mild tenderness postop, bowel sounds present SKIN: no rashes EXTREMITIES: no edema, redness or tenderness Objective Data Vital Signs Vital Signs: Vital Signs - 24 hr 12/01/23 17:37 12/01/23 20:00 12/01/23 21:25 Temperature 98.5 F 96.8 F L Pulse Rate 92 92 Respiratory Rate 22 H 20 Blood Pressure 162/87 H 149/89 H Pulse Oximetry 94 94 Oxygen Delivery Room Air 12/01/23 22:00 12/02/23 04:55 12/02/23 13:24 Temperature 97.2 F L 97.6 F Pulse Rate 87 90 Respiratory Rate 20 16 Blood Pressure 138/84 146/76 H Pulse Oximetry 94 92 95 Oxygen Delivery Room Air Intake/Output Intake/Output: Intake & Output 11/29/23 11/30/23 12/01/23 12/02/23 23:59 23:59 23:59 23:59 Intake Total 3120 1780 Output Total 300 Balance 2820 1780 Meds/Results Medications: Active Medications Generic Name Dose Route Start Last Admin Trade Name Freq PRN Reason Stop Dose Admin Acetaminophen 650 mg 12/01/23 07:23 12/01/23 10:14 Acetaminophen 325 Mg Tablet PO 650 mg Q4H PRN Administration Mild Pain (1-3) or Fever Hydrocodone Bitart/Acetaminophen 1 tab 12/01/23 13:31 12/01/23 15:50 Hydrocodone/Acetaminophen (*Crx) 5-325 Mg Tablet PO 1 tab Q6H PRN Administration Pain Rated 4-6 Amlodipine Besylate 5 mg 12/01/23 21:00 12/01/23 20:25 Amlodipine Besylate 5 Mg Tablet PO 5 mg HS [place] Administration Aspirin 325 mg 12/02/23 09:00 12/02/23 08:20 Aspir
--- NOTE | 2023-12-02 15:04 | PM.PNGS ---
Progress Note: A&P Assessment and Plan (1) Ileus: Code(s): K56.7 - Ileus, unspecified Status: Acute Assessment and Plan: Patient presented with a postop ileus and is starting to improve. Dulcolax suppository ordered this morning. His potassium was 3.7 this morning and he was given 40 meq KCL IV this morning. Encouraged getting up and walking the halls. Will keep him on clear liquids again today. Repeat labs tomorrow morning. (2) Incarcerated ventral hernia: Code(s): K43.6 - Other and unspecified ventral hernia with obstruction, without gangrene Status: Acute Assessment and Plan: Postop day 5 following a robotic assisted laparoscopic incarcerated periumbilical ventral hernia repair? Plan I have discussed the patient's case and plan of care with Dr. Burton. Subjective Subjective Date/Time Seen: 12/02/23 15:04 Post Op day: 5 (Robotic assisted laparoscopic incarcerated periumbilical ventral hernia repair with transabdominal preperitoneal (CINDY) placement of Bard soft mesh) Patient reports: feels better, pain is less, voiding w/o difficulty, flatus and no bowel movement Interval history: This is a 73 year old who presented to the ER on postop day 4 following the hernia repair mentioned above, with nausea/vomiting. Workup in the ER was significant for an ileus. Chart reviewed. Patient is currently on clear liquids and tolerating this well. He is feeling better today. Denies any nausea at this time. Exam Const: General: comfortable and no acute distress Orientation/consciousness: patient oriented x3 GI: Auscultation: Hypoactive bowel sounds present Other: Abdomen is distended but soft. Incisions are dry and glue intact, no erythema or drainage. He has mild diffuse tenderness as well as expected incisional tenderness. Objective Data Vital Signs Vital Signs: Vital Signs - 24 hr 12/01/23 17:37 12/01/23 20:00 12/01/23 21:25 Temperature 98.5 F 96.8 F L Pulse Rate 92 92 Respiratory Rate 22 H 20 Blood Pressure 162/87 H 149/89 H Pulse Oximetry 94 94 Oxygen Delivery Room Air 12/01/23 22:00 12/02/23 04:55 12/02/23 13:24 Temperature 97.2 F L 97.6 F Pulse Rate 87 90 Respiratory Rate 20 16 Blood Pressure 138/84 146/76 H Pulse Oximetry 94 92 95 Oxygen Delivery Room Air Intake/Output Intake/Output: Intake & Output 11/29/23 11/30/23 12/01/23 12/02/23 23:59 23:59 23:59 23:59 Intake Total 3120 1780 Output Total 300 Balance 2820 1780 Meds/Results Medications: Active Medications Generic Name Dose Route Start Last Admin Trade Name Freq PRN Reason Stop Dose Admin Acetaminophen 650 mg 12/01/23 07:23 12/01/23 10:14 Acetaminophen 325 Mg Tablet PO 650 mg Q4H PRN Administration Mild Pain (1-3) or Fever Hydrocodone Bitart/Acetaminophen 1 tab 12/01/23 13:31 12/01/23 15:50 Hydrocodone/Acetaminophen (*Crx) 5-325 Mg Tablet PO 1 tab Q6H PRN Administration Pain Rated 4-6 Amlodipine Besylate 5 mg 12/01/23 21:00 12/01/23 20:25 Amlodipine Besylate 5 Mg Tablet PO 5 mg HS [place] Administration Aspirin 325 mg 12/02/23 09:00 12/02/23 08:20 Aspirin 325 Mg Enteric Tablet PO 325 mg DAILY [place] Administration Azelastine HCl 1 spray 12/01/23 13:23 12/02/23 08:22 Azelastine Hcl Nasal 0.1% 137 Mcg/Spr 30 Ml Btl NASAL 1 spray Q12H PRN Administration Congestion Docusate Sodium 100 mg 12/01/23 15:20 12/01/23 15:49 Docusate Sodium 100 Mg Capsule PO 100 mg Q12H PRN Administration Constipation Miscellaneous Information 0 each 12/01/23 00:01 Ash 9-Znp-Wdf-Fish Oil 1,600-500-800 Mg/5 Ml Liquid - Placed On Hold As Nonformulary Nut XX 12/31/23 00:00 CLARIFY [place] Morphine Sulfate 2 mg 12/01/23 15:21 Morphine Sulfate (*Crx) 2 Mg/Ml Inj IV PUSH Q4H PRN Pain Rated 7-10 Ondansetron HCl 4 mg 12/01/23 07:23 12/01/23 12:59 Ondansetron Inj 4 Mg/2 Ml Vial IV PUSH 4 mg Q4
[2023-12-02] MEDS: amLODIPine BESYLATE 5 MG TABLET PO (20:57)
[2023-12-02] MEDS: ZOLPIDEM TARTRATE (*CRX) 5 MG TABLET PO (20:57)
[2023-12-02 21:26] VITALS: BP 156/87; PULSE 98; RESP 18; TEMP 36.9; O2SAT 93
[2023-12-02 22:06] VITALS: O2SAT 95
[2023-12-03 06:00] VITALS: BP 151/92; PULSE 97; RESP 18; TEMP 36.7; O2SAT 92
[2023-12-03 06:53] LABS: Hematocrit 44.3 % (42.0-52.0); Hemoglobin 15.3 g/dL (14.0-18.0); Mean Corpuscular HGB Conc 34.5 g/dl (32-36); Mean Corpuscular Hemoglobin 31.3 pg (26-34); Mean Corpuscular Volume 90.6 fl (80-100); Mean Platelet Volume 8.9 fl (7.4-10.4); Platelet Count Result 180 k/mm3 (150-375); Red Blood Count 4.89 M/mm3 (4.6-6.20); Red Cell Distribution Width 13.2 % (11.5-14.5); White Blood Count 3.9 K/mm3 (4.5-10.0)
[2023-12-03 07:17] LABS: Anion Gap 12 mmol/L (8-16); Blood Urea Nitrogen 28 mg/dL (9-20); Calcium 8.4 mg/dL (8.4-10.2); Carbon Dioxide 14 mmol/L (22-30); Chloride 110 mmol/L (98-107); Estimated CRCL calculation 57 ml/min; Estimated Glomerular Filt Rate 60; Glucose 154 mg/dL (65-110); Potassium 3.2 mmol/L (3.4-5.0); Sodium 136 mmol/L (137-145)
[2023-12-03] MEDS: POTASSIUM CHLORIDE 20 MEQ ER TABLET 40 MEQ PO (08:43)
[2023-12-03] MEDS: CHOLECALCIFEROL 1,000 UNITS TABLET 1000 UNITS PO (08:43)
[2023-12-03] MEDS: PANTOPRAZOLE SODIUM IV 40 MG VIAL IV PUSH (08:44)
[2023-12-03] MEDS: ASPIRIN 325 MG ENTERIC TABLET PO (08:44)
--- NOTE | 2023-12-03 13:28 | WPDPN ---
Progress Note: A&P Assessment and Plan (1) Ileus: Code(s): K56.7 - Ileus, unspecified Status: Acute Assessment and Plan: Patient is postoperative ileus has resolved. He is now having copious diarrhea. Go ahead advanced to full liquid diet today. I have also given potassium supplementation since his Potassium went from 3.7 to 3.2 with all this diarrhea. Recheck labs in the morning. (2) S/P repair of ventral hernia: Code(s): Z98.890 - Other specified postprocedural states; Z87.19 - Personal history of other diseases of the digestive system Status: Acute Assessment and Plan: Postop day 7. After robotic assisted laparoscopic ventral hernia repair with preperitoneal placement of mesh. Readmitted for postoperative ileus I was well as abdominal pain and nausea. That is now resolved. Hopefully we can advance his diet to regular food by tomorrow and discharge home hopefully tomorrow. Subjective Date/time seen: 12/03/23 13:28 Interval history: Patient denies having any abdominal pain. He has denied having any nausea. His bowels have now started to work as having copious diarrhea. Diarrhea is nonbloody. He is postop day number 7 after robotic assisted laparoscopic transabdominal preperitoneal placement of mesh for ventral hernia repair. He is wearing his abdominal binder today. Is able to ambulate to the bathroom in the platt without difficulty. His potassium is 3.7 yesterday and he was given some IV potassium replacement. Today is potassium low at 3.2 but he has been having a lot of diarrhea overnight. His postoperative ileus seems to have resolved. Exam GI: Other: Abdomen is obese and mildly distended. Bowel sounds are noted. Hernia repair is intact. Port site incisions are healing well. Objective Data Vital Signs Vital Signs: Vital Signs - 24 hr 12/02/23 21:26 12/02/23 22:06 12/03/23 06:00 Temperature 36.9 C 36.7 C Pulse Rate 98 97 Respiratory Rate 18 18 Blood Pressure 156/87 H 151/92 H Pulse Oximetry 93 95 92 Oxygen Delivery Room Air Intake/Output Intake/Output: Intake & Output 11/30/23 12/01/23 12/02/23 12/03/23 23:59 23:59 23:59 23:59 Intake Total 3120 2540 640 Output Total 300 Balance 2820 2540 640 Meds/Results Medications: Active Medications Generic Name Dose Route Start Last Admin Trade Name Freq PRN Reason Stop Dose Admin Acetaminophen 650 mg 12/01/23 07:23 12/01/23 10:14 Acetaminophen 325 Mg Tablet PO 650 mg Q4H PRN Administration Mild Pain (1-3) or Fever Hydrocodone Bitart/Acetaminophen 1 tab 12/01/23 13:31 12/01/23 15:50 Hydrocodone/Acetaminophen (*Crx) 5-325 Mg Tablet PO 1 tab Q6H PRN Administration Pain Rated 4-6 Amlodipine Besylate 5 mg 12/01/23 21:00 12/02/23 20:57 Amlodipine Besylate 5 Mg Tablet PO 5 mg HS [place] Administration Aspirin 325 mg 12/02/23 09:00 12/03/23 08:44 Aspirin 325 Mg Enteric Tablet PO 325 mg DAILY [place] Administration Azelastine HCl 1 spray 12/01/23 13:23 12/02/23 20:57 Azelastine Hcl Nasal 0.1% 137 Mcg/Spr 30 Ml Btl NASAL 1 spray Q12H PRN Administration Congestion Docusate Sodium 100 mg 12/01/23 15:20 12/01/23 15:49 Docusate Sodium 100 Mg Capsule PO 100 mg Q12H PRN Administration Constipation Miscellaneous Information 0 each 12/01/23 00:01 [place] 3-Fee-Bvd-Fish Oil 1,600-500-800 Mg/5 Ml Liquid - Placed On Hold As Nonformulary Nut XX 12/31/23 00:00 CLARIFY [place] Morphine Sulfate 2 mg 12/01/23 15:21 Morphine Sulfate (*Crx) 2 Mg/Ml Inj IV PUSH Q4H PRN Pain Rated 7-10 Ondansetron HCl 4 mg 12/01/23 07:23 12/01/23 12:59 Ondansetron Inj 4 Mg/2 Ml Vial IV PUSH 4 mg Q4H PRN Administration Nausea Pantoprazole Sodium 40 mg 12/01/23 13:45 12/03/23 08:44 Pantoprazole Sodium Iv 40 Mg Vial IV PUSH 40 mg QAM [place] Administration Promethazine HCl 12.5 mg 12/01/23 21:00
[2023-12-03 14:00] VITALS: BP 167/90; PULSE 80; RESP 16; TEMP 35.9; O2SAT 96
--- NOTE | 2023-12-03 15:36 | PM.IMPN ---
Progress Note: A&P Assessment and Plan (1) Ileus: Code(s): K56.7 - Ileus, unspecified Status: Acute Assessment and Plan: - admission under General Surgery, initial evaluation by Ramakrishna ROSALES - CT of abd/pelvis: 1. Mildly dilated small bowel without discrete transition point and favor postoperative ileus over obstruction with additional postoperative changes along the anterior abdominal wall. 2. Small region of consolidation at the bilateral lung bases with appearance favoring atelectasis over pneumonia. - EKG, initial: sinus tachycardia, nonspecific t-wave abnormality, when compared to previous there are no significant changes - encourage ambulation - advance diet as tolerated - analgesics and antiemetics - monitor I&Os - PPI added (2) Sepsis: Qualifiers: Sepsis type: sepsis due to unspecified organism Sepsis acute organ dysfunction status: unspecified Qualified Code(s): A41.9 - Sepsis, unspecified organism Code(s): A41.9 - Sepsis, unspecified organism Status: Acute Assessment and Plan: - meets SIRS criteria: HR and RR - lactic acid 1.6 - given 2L bolus - blood cultures no growth to date - suspect HR and RR elevated secondary to dehydration - trend WBC Resolved. (3) Stage 3a chronic kidney disease: Code(s): N18.31 - Chronic kidney disease, stage 3a Status: Acute Assessment and Plan: - creatinine 1.2 - creatinine 1.7 in January of 2020 - continue to monitor renal function (4) HTN (hypertension): Qualifiers: Hypertension type: unspecified Qualified Code(s): I10 - Essential (primary) hypertension Code(s): I10 - Essential (primary) hypertension Status: Acute Assessment and Plan: - chronic, mildly elevated at present - continue home medications: amlodipine - monitor (5) Complex sleep apnea syndrome: Code(s): G47.31 - Primary central sleep apnea Status: Acute Assessment and Plan: - continue home CPAP Subjective Date/time seen: 12/03/23 15:36 Interval history: Patient experiencing uncontrollable diarrhea today. Will not treat with anti diarrheal at this time due to patient's recent constipation. His diet was advanced per General surgery recommendation. He is having some acidosis and low potassium likely due to diarrhea. Continue to monitor labs. Exam Narrative: GENERAL: Comfortable, no acute distress HENMT: moist mucous membranes EYES: EOM intact b/l NECK: no lymphadenopathy RESPIRATORY: clear to auscultation CARDIO: RRR GI: abdominal binder in place, mild tenderness postop, bowel sounds present SKIN: no rashes EXTREMITIES: no edema, redness or tenderness Objective Data Vital Signs Vital Signs: Vital Signs - 24 hr 12/02/23 21:26 12/02/23 22:06 12/03/23 06:00 Temperature 98.4 F 98.1 F Pulse Rate 98 97 Respiratory Rate 18 18 Blood Pressure 156/87 H 151/92 H Pulse Oximetry 93 95 92 Oxygen Delivery Room Air Intake/Output Intake/Output: Intake & Output 11/30/23 12/01/23 12/02/23 12/03/23 23:59 23:59 23:59 23:59 Intake Total 3120 2540 1000 Output Total 300 Balance 2820 2540 1000 Meds/Results Medications: Active Medications Generic Name Dose Route Start Last Admin Trade Name Freq PRN Reason Stop Dose Admin Acetaminophen 650 mg 12/01/23 07:23 12/01/23 10:14 Acetaminophen 325 Mg Tablet PO 650 mg Q4H PRN Administration Mild Pain (1-3) or Fever Hydrocodone Bitart/Acetaminophen 1 tab 12/01/23 13:31 12/01/23 15:50 Hydrocodone/Acetaminophen (*Crx) 5-325 Mg Tablet PO 1 tab Q6H PRN Administration Pain Rated 4-6 Amlodipine Besylate 5 mg 12/01/23 21:00 12/02/23 20:57 Amlodipine Besylate 5 Mg Tablet PO 5 mg HS [place] Administration Aspirin 325 mg 12/02/23 09:00 12/03/23 08:44 Aspirin 325 Mg Enteric Tablet PO 325 mg DAILY [place] Administration Azelastine HCl 1 spray 12/01/23 13:23
[2023-12-03] MEDS: amLODIPine BESYLATE 5 MG TABLET PO (20:14)
[2023-12-03] MEDS: ZOLPIDEM TARTRATE (*CRX) 5 MG TABLET PO (20:14)
[2023-12-03 20:40] VITALS: BP 145/91; PULSE 88; RESP 18; TEMP 36.2; O2SAT 94
[2023-12-03 20:43] VITALS: PULSE 87; O2SAT 94
[2023-12-03] MEDS: PROMETHAZINE HCL 25 MG/ML AMPUL 12.5 MG IV PUSH (22:53)
[2023-12-04 04:25] VITALS: BP 140/84; PULSE 91; RESP 18; TEMP 36.1; O2SAT 92
[2023-12-04] MEDS: CHOLECALCIFEROL 1,000 UNITS TABLET 1000 UNITS PO (08:43)
[2023-12-04] MEDS: ASPIRIN 325 MG ENTERIC TABLET PO (08:43)
[2023-12-04] MEDS: PANTOPRAZOLE SODIUM IV 40 MG VIAL IV PUSH (08:43)
[2023-12-04 09:37] LABS: Hematocrit 44.4 % (42.0-52.0); Hemoglobin 15.1 g/dL (14.0-18.0); Mean Corpuscular Hemoglobin 31.2 pg (26-34); Mean Corpuscular Volume 91.7 fl (80-100); Platelet Count Result 195 k/mm3 (150-375); Red Blood Count 4.84 M/mm3 (4.6-6.20); Red Cell Distribution Width 13.2 % (11.5-14.5); White Blood Count 4.4 K/mm3 (4.5-10.0)
[2023-12-04 09:44] LABS: Alanine Aminotransferase 25 U/L (6-50); Albumin Level 3.8 g/dL (3.5-5.1); Alkaline Phosphatase 79 U/L (38-126); Anion Gap 9 mmol/L (8-16); Aspartate Amino Transferase 25 U/L (17-59); Bilirubin,Total 1.8 mg/dL (0.2-1.3); Blood Urea Nitrogen 28 mg/dL (9-20); Calcium 8.7 mg/dL (8.4-10.2); Carbon Dioxide 17 mmol/L (22-30); Chloride 108 mmol/L (98-107); Estimated CRCL calculation 57 ml/min; Estimated Glomerular Filt Rate 60; Glucose 130 mg/dL (65-110); Potassium 3.4 mmol/L (3.4-5.0); Sodium 134 mmol/L (137-145)
[2023-12-04] MEDS: POTASSIUM CHLORIDE 20 MEQ ER TABLET 40 MEQ PO (12:27)
--- NOTE | 2023-12-04 13:03 | PM.PNGS ---
Progress Note: A&P Assessment and Plan (1) Ileus: Code(s): K56.7 - Ileus, unspecified Status: Acute Assessment and Plan: Postoperative ileus has resolved. Copious diarrhea yesterday and last night. Seems slightly better this morning. Will again replace his potassium that had been low with his diarrhea, which went up to 3.4 from 3.2 after supplementation yesterday. Will advance to a regular diet. Encouraged walking the halls multiple times today. Recheck labs in the morning. (2) S/P repair of ventral hernia: Code(s): Z98.890 - Other specified postprocedural states; Z87.19 - Personal history of other diseases of the digestive system Status: Acute Assessment and Plan: Postop day 8 after robotic assisted laparoscopic ventral hernia repair with preperitoneal placement of mesh. Readmitted for postoperative ileus with abdominal pain and nausea. He has been improving, but did have another episode of vomiting last night after dinner. He is felling better today. Still had a lot of diarrhea overnight that has slowed some this morning. Will advance to a regular diet and hopefully he can discharge tomorrow if he continues to improve. Plan I have discussed the patient's case and plan of care with Dr. Burton. Subjective Subjective Date/Time Seen: 12/04/23 13:03 Patient reports: feels better (today), tolerating liquids well, flatus, diarrhea, vomiting (once last night around 8 pm after dinner) and afebrile Interval history: Patient still had a lot of diarrhea overnight. He reports 7-8 episodes of diarrhea to the point that he could not make it to the bathroom and soiled himself in the bed. This seems like less today with only 2 liquid BMs. He had an episode of vomiting after dinner last night. He is feeling better today. He ate most of his breakfast tray with full liquids. He doesn't particularly feel bloated. No abdominal pain other than some soreness at the site of the repair when he gets up out of bed. No other complaints at this time. Exam Const: General: comfortable and no acute distress Orientation/consciousness: patient oriented x3 GI: Other: Abdomen mildly distended but soft. No significant tenderness. There is ecchymosis noted mostly infraumbilical. Port incisions are dry with glue intact, no erythema or drainage. Hernia repair is intact. Objective Data Vital Signs Vital Signs: Vital Signs - 24 hr 12/03/23 14:00 12/03/23 20:43 12/03/23 20:10 Temperature 96.6 F L Pulse Rate 80 87 Respiratory Rate 16 Blood Pressure 167/90 H Pulse Oximetry 96 94 Oxygen Delivery Room Air Room Air 12/03/23 20:40 12/04/23 02:10 12/04/23 04:25 Temperature 97.1 F L 97 F L Pulse Rate 88 91 Respiratory Rate 18 18 Blood Pressure 145/91 H 140/84 Pulse Oximetry 94 92 Oxygen Delivery Room Air 12/04/23 08:42 Temperature Pulse Rate Respiratory Rate Blood Pressure Pulse Oximetry Oxygen Delivery Room Air Intake/Output Intake/Output: Intake & Output 12/01/23 12/02/23 12/03/23 12/04/23 23:59 23:59 23:59 23:59 Intake Total 3120 2540 1420 487 Output Total 300 Balance 2820 2540 1420 487 Meds/Results Medications: Active Medications Generic Name Dose Route Start Last Admin Trade Name Freq PRN Reason Stop Dose Admin Acetaminophen 650 mg 12/01/23 07:23 12/01/23 10:14 Acetaminophen 325 Mg Tablet PO 650 mg Q4H PRN Administration Mild Pain (1-3) or Fever Hydrocodone Bitart/Acetaminophen 1 tab 12/01/23 13:31 12/01/23 15:50 Hydrocodone/Acetaminophen (*Crx) 5-325 Mg Tablet PO 1 tab Q6H PRN Administration Pain Rated 4-6 Amlodipine Besylate 5 mg 12/01/23 21:00 12/03/23 20:14 Amlodipine Besylate 5 Mg Tablet PO 5 mg HS [place] Administration Aspirin 325 mg 12/02/23 09:00 12/04/23 08:43 Aspirin 325 Mg Enteric Tablet PO 325 mg DAILY [place] Administration Azelastine HCl 1 spray 12/01/23 13:23 12/02/23 20:57 Azelastine Hcl
[2023-12-04 14:00] VITALS: BP 138/93; PULSE 82; RESP 26; TEMP 35.9; O2SAT 93
--- NOTE | 2023-12-04 14:19 | PM.IMPN ---
Progress Note: A&P Assessment and Plan (1) Ileus: Code(s): K56.7 - Ileus, unspecified Status: Acute Assessment and Plan: - admission under General Surgery, initial evaluation by Ramakrishna ROSALES - CT of abd/pelvis: 1. Mildly dilated small bowel without discrete transition point and favor postoperative ileus over obstruction with additional postoperative changes along the anterior abdominal wall. 2. Small region of consolidation at the bilateral lung bases with appearance favoring atelectasis over pneumonia. - EKG, initial: sinus tachycardia, nonspecific t-wave abnormality, when compared to previous there are no significant changes - encourage ambulation - advance diet as tolerated - analgesics and antiemetics - monitor I&Os - PPI added 12/05: Still episodes of vomiting and diarrhea slowly improving. continue to monitor and replenish electrolytes (2) Sepsis: Qualifiers: Sepsis type: sepsis due to unspecified organism Sepsis acute organ dysfunction status: unspecified Qualified Code(s): A41.9 - Sepsis, unspecified organism Code(s): A41.9 - Sepsis, unspecified organism Status: Acute Assessment and Plan: RESOLVED - meets SIRS criteria: HR and RR - lactic acid 1.6 - given 2L bolus - blood cultures no growth to date - suspect HR and RR elevated secondary to dehydration - trend WBC (3) Stage 3a chronic kidney disease: Code(s): N18.31 - Chronic kidney disease, stage 3a Status: Acute Assessment and Plan: - creatinine 1.2 - creatinine 1.7 in January of 2020 - continue to monitor renal function (4) HTN (hypertension): Qualifiers: Hypertension type: unspecified Qualified Code(s): I10 - Essential (primary) hypertension Code(s): I10 - Essential (primary) hypertension Status: Acute Assessment and Plan: - chronic, mildly elevated at present - continue home medications: amlodipine - monitor (5) Complex sleep apnea syndrome: Code(s): G47.31 - Primary central sleep apnea Status: Acute Assessment and Plan: - continue home CPAP Plan Code status: Full code per patient DVT prophylaxis: SCD's Stress ulcer prophylaxis: Protonix 40 daily PT/OT notes: Ambulatory Disposition: Patient continues admission to the medical unit vomiting and diarrhea slowly improving can likely discharge home tomorrow if no events over night and tolerating oral intake per surgery. Time Spent With Patient Time with patient: 15 - 25 minutes Subjective Date/time seen: 12/04/23 14:19 Interval history: Consult (Medical record) 73 y/o M presents here with nausea, vomiting, and abdominal pain with PMH of recent hernia surgery on 11/27, pAFib, HTN, CKD S3, sleep apnea, aortic regurgitation, dyslipidemia, and second degree heart block. Patient presents here for evaluation of nausea, vomiting, and epigastric pain with recent incarcerated ventral hernia repair performed here at [facility] by Micheal ROSALES. No immediate post-operative complications were identified and patient was discharged without incident same day. Patient arrived to the ED this morning for evaluation of acute onset of vomiting that started yesterday afternoon and reoccurred at 05:00 this morning. Emesis is bilious and non-bloody. Nausea has been present since surgery on the . Reports compliance with abdominal binder. Pain worsens with movement and has reduced to only taking Tylenol for discomfort. noted increasing abdominal distention - noted where abdominal binder originally had Velcro strip and where it has been moved to in order to accommodate expansion. LBM on Sunday 11/26. No medications taken for constipation. +lack of appetite since surgery as well. Now experiencing chills. No fever or body aches. Patient has been more immobile since surgery. VS upon presentation: 97.8F, HR 109, RR 24, 140/91, 92% on RA. Later placed on 3L NC to maintain O2 s
[2023-12-04] MEDS: POTASSIUM CHLORIDE 20 MEQ ER TABLET PO (17:28)
[2023-12-04] MEDS: ONDANSETRON INJ 4 MG/2 ML VIAL IV PUSH ×2 (18:09→22:59)
[2023-12-04 20:35] VITALS: BP 154/82; PULSE 89; RESP 20; TEMP 36; O2SAT 92
[2023-12-04] MEDS: PROMETHAZINE HCL 25 MG/ML AMPUL 12.5 MG IV PUSH (20:53)
[2023-12-04] MEDS: ZOLPIDEM TARTRATE (*CRX) 5 MG TABLET PO (20:55)
[2023-12-04] MEDS: amLODIPine BESYLATE 5 MG TABLET PO (20:56)
[2023-12-05 05:20] VITALS: BP 146/89; PULSE 97; RESP 30; TEMP 36.5; O2SAT 91
[2023-12-05 06:20] LABS: Anion Gap 11 mmol/L (8-16); Blood Urea Nitrogen 30 mg/dL (9-20); Calcium 8.6 mg/dL (8.4-10.2); Carbon Dioxide 15 mmol/L (22-30); Chloride 110 mmol/L (98-107); Estimated CRCL calculation 57 ml/min; Estimated Glomerular Filt Rate 60; Glucose 128 mg/dL (65-110); Magnesium 1.8 mg/dL (1.6-2.3); Phosphorus 3.5 mg/dL (2.5-4.5); Potassium 3.8 mmol/L (3.4-5.0); Sodium 136 mmol/L (137-145)
[2023-12-05] MEDS: ASPIRIN 325 MG ENTERIC TABLET PO (08:15)
[2023-12-05] MEDS: PANTOPRAZOLE SODIUM IV 40 MG VIAL IV PUSH (08:15)
[2023-12-05] MEDS: CHOLECALCIFEROL 1,000 UNITS TABLET 1000 UNITS PO (08:15)
--- NOTE | 2023-12-05 10:59 | PM.PNGS ---
Progress Note: A&P Assessment and Plan (1) Ileus: Code(s): K56.7 - Ileus, unspecified Status: Acute Assessment and Plan: Postoperative ileus resolved and bowels were moving, but he had another episode of vomiting last night. His diarrhea has improved. Will add Reglan. Continue a regular diet as he is tolerating this today. Encourage ambulating in the halls. (2) S/P repair of ventral hernia: Code(s): Z98.890 - Other specified postprocedural states; Z87.19 - Personal history of other diseases of the digestive system Status: Acute Assessment and Plan: Postop day 9 after robotic assisted laparoscopic ventral hernia repair with preperitoneal placement of mesh. Readmitted for postoperative ileus with abdominal pain and nausea. Ileus is resolving, but he had another episode of vomiting last night. See plan above. Incisions healing well. Continue abdominal binder. Plan I have discussed the patient's case and plan of care with Dr. Burton. Subjective Subjective Date/Time Seen: 12/05/23 10:59 Patient reports: vomiting (vomiting last night) Interval history: Patient again had nausea and vomiting last night between 8 and 11:00 p.m.. He reports that was after dinner again. He did have oral potassium around 530 yesterday evening, but did not have any nausea when he took the potassium earlier yesterday morning. No other new medications. His bowels are still moving. His diarrhea is slowing down. He estimates 3 liquid bowel movements yesterday and 2 already this morning. He received Zofran and promethazine last night for his nausea. It eventually improved and he is feeling much better this morning. He ate all of his food on a regular diet for breakfast. Denies any nausea this morning. No other complaints at this time. Exam Const: General: comfortable and no acute distress GI: Auscultation: normal bowel sounds Other: Abdomen mildly distended but soft. No significant tenderness. There is ecchymosis noted mostly infraumbilical. Port incisions are dry with glue intact, no erythema or drainage. Hernia repair is intact. Objective Data Vital Signs Vital Signs: Vital Signs - 24 hr 12/04/23 14:00 12/04/23 20:35 12/05/23 05:20 Temperature 96.7 F L 96.8 F L 97.7 F Pulse Rate 82 89 97 Respiratory Rate 26 H 20 30 H Blood Pressure 138/93 H 154/82 H 146/89 H Pulse Oximetry 93 92 91 Oxygen Delivery 12/05/23 08:14 Temperature Pulse Rate Respiratory Rate Blood Pressure Pulse Oximetry Oxygen Delivery Room Air Intake/Output Intake/Output: Intake & Output 12/02/23 12/03/23 12/04/23 12/05/23 23:59 23:59 23:59 23:59 Intake Total 2540 1420 1384 1900 Balance 2540 1420 1384 1900 Meds/Results Medications: Active Medications Generic Name Dose Route Start Last Admin Trade Name Freq PRN Reason Stop Dose Admin Acetaminophen 650 mg 12/01/23 07:23 12/01/23 10:14 Acetaminophen 325 Mg Tablet PO 650 mg Q4H PRN Administration Mild Pain (1-3) or Fever Hydrocodone Bitart/Acetaminophen 1 tab 12/01/23 13:31 12/01/23 15:50 Hydrocodone/Acetaminophen (*Crx) 5-325 Mg Tablet PO 1 tab Q6H PRN Administration Pain Rated 4-6 Amlodipine Besylate 5 mg 12/01/23 21:00 12/04/23 20:56 Amlodipine Besylate 5 Mg Tablet PO 5 mg HS [place] Administration Aspirin 325 mg 12/02/23 09:00 12/05/23 08:15 Aspirin 325 Mg Enteric Tablet PO 325 mg DAILY [place] Administration Azelastine HCl 1 spray 12/01/23 13:23 12/02/23 20:57 Azelastine Hcl Nasal 0.1% 137 Mcg/Spr 30 Ml Btl NASAL 1 spray Q12H PRN Administration Congestion Docusate Sodium 100 mg 12/01/23 15:20 12/01/23 15:49 Docusate Sodium 100 Mg Capsule PO 100 mg Q12H PRN Administration Constipation Morphine Sulfate 2 mg 12/01/23 15:21 Morphine Sulfate (*Crx) 2 Mg/Ml Inj IV PUSH Q4H PRN Pain Rated 7-10 Ondansetron HCl 4 mg 12/01/23 07:23 12/04/23 22:59 Ondanset
[2023-12-05 14:00] VITALS: BP 133/88; PULSE 92; RESP 24; TEMP 36.2; O2SAT 91
[2023-12-05] MEDS: ONDANSETRON INJ 4 MG/2 ML VIAL IV PUSH ×2 (16:01→20:14)
[2023-12-05] MEDS: amLODIPine BESYLATE 5 MG TABLET PO (20:17)
[2023-12-05] MEDS: ZOLPIDEM TARTRATE (*CRX) 5 MG TABLET PO (20:17)
[2023-12-05 21:45] VITALS: BP 132/85; PULSE 87; RESP 18; TEMP 35.8; O2SAT 93
[2023-12-06 05:50] VITALS: BP 136/75; PULSE 79; RESP 16; TEMP 36.3; O2SAT 93
[2023-12-06] MEDS: CHOLECALCIFEROL 1,000 UNITS TABLET 1000 UNITS PO (08:00)
[2023-12-06] MEDS: ASPIRIN 325 MG ENTERIC TABLET PO (08:00)
[2023-12-06] MEDS: PANTOPRAZOLE SODIUM IV 40 MG VIAL IV PUSH (08:00)
[2023-12-06 13:45] VITALS: BP 130/85; PULSE 84; RESP 16; TEMP 36.1; O2SAT 94
--- NOTE | 2023-12-06 14:11 | WPDPN ---
Progress Note: A&P Assessment and Plan (1) S/P repair of ventral hernia: Code(s): Z98.890 - Other specified postprocedural states; Z87.19 - Personal history of other diseases of the digestive system Status: Acute Assessment and Plan: Patient hernia repair is healing well. Incisions are healed well and there is no evidence of recurrence of the hernia. Continue to use abdominal binder as needed and no heavy lifting. Follow-up in the office as scheduled next week. (2) Ileus: Code(s): K56.7 - Ileus, unspecified Status: Acute Assessment and Plan: Postoperative ileus has resolved. He is having multiple bowel movements per day. Potassium level is normal. (3) Nausea and vomiting: Qualifiers: Vomiting type: unspecified Qualified Code(s): R11.2 - Nausea with vomiting, unspecified Code(s): R11.2 - Nausea with vomiting, unspecified Status: Acute Assessment and Plan: Patient still having some chronic nausea but has not had emesis over the last 24 hours. Zofran seems to treated nicely. Will discharge him home with some Zofran to use on as needed. Subjective Date/time seen: 12/06/23 14:11 Interval history: Patient is doing well today. No nausea or vomiting last evening. Tolerating regular diet. So having some loose bowel movements but a little better. Abdomen is benign on exam. Exam GI: Other: Abdomen is soft and nondistended. Incisions are all healing well without any wound complications. No redness or drainage. Exam is benign. Objective Data Vital Signs Vital Signs: Vital Signs - 24 hr 12/05/23 21:45 12/06/23 05:50 12/06/23 08:00 Temperature 35.8 C L 36.3 C L Pulse Rate 87 79 Respiratory Rate 18 16 Blood Pressure 132/85 136/75 Pulse Oximetry 93 93 Oxygen Delivery Room Air 12/06/23 13:45 Temperature 36.1 C L Pulse Rate 84 Respiratory Rate 16 Blood Pressure 130/85 Pulse Oximetry 94 Oxygen Delivery Intake/Output Intake/Output: Intake & Output 12/03/23 12/04/23 12/05/23 12/06/23 23:59 23:59 23:59 23:59 Intake Total 1420 1384 2818 600 Balance 1420 1384 2818 600 Meds/Results Medications: Active Medications Generic Name Dose Route Start Last Admin Trade Name Freq PRN Reason Stop Dose Admin Acetaminophen 650 mg 12/01/23 07:23 12/01/23 10:14 Acetaminophen 325 Mg Tablet PO 650 mg Q4H PRN Administration Mild Pain (1-3) or Fever Hydrocodone Bitart/Acetaminophen 1 tab 12/01/23 13:31 12/01/23 15:50 Hydrocodone/Acetaminophen (*Crx) 5-325 Mg Tablet PO 1 tab Q6H PRN Administration Pain Rated 4-6 Amlodipine Besylate 5 mg 12/01/23 21:00 12/05/23 20:17 Amlodipine Besylate 5 Mg Tablet PO 5 mg HS [place] Administration Aspirin 325 mg 12/02/23 09:00 12/06/23 08:00 Aspirin 325 Mg Enteric Tablet PO 325 mg DAILY [place] Administration Azelastine HCl 1 spray 12/01/23 13:23 12/02/23 20:57 Azelastine Hcl Nasal 0.1% 137 Mcg/Spr 30 Ml Btl NASAL 1 spray Q12H PRN Administration Congestion Docusate Sodium 100 mg 12/01/23 15:20 12/01/23 15:49 Docusate Sodium 100 Mg Capsule PO 100 mg Q12H PRN Administration Constipation Morphine Sulfate 2 mg 12/01/23 15:21 Morphine Sulfate (*Crx) 2 Mg/Ml Inj IV PUSH Q4H PRN Pain Rated 7-10 Ondansetron HCl 4 mg 12/01/23 07:23 12/05/23 20:14 Ondansetron Inj 4 Mg/2 Ml Vial IV PUSH 4 mg Q4H PRN Administration Nausea Pantoprazole Sodium 40 mg 12/01/23 13:45 12/06/23 08:00 Pantoprazole Sodium Iv 40 Mg Vial IV PUSH 40 mg QAM [place] Administration Vitamin D 1,000 units 12/02/23 09:00 12/06/23 08:00 Cholecalciferol 1,000 Units Tablet PO 1,000 units DAILY [place] Administration Zolpidem Tartrate 5 mg 12/01/23 13:23 12/05/23 20:17 Zolpidem Tartrate (*Crx) 5 Mg Tablet PO 5 mg QHS PRN Administration insomnia Radiology Results: ITS Impressions Chest X-Ray 12/01
--- NOTE | 2023-12-06 15:03 | PM.DS ---
DS: Admitting Diagnosis Discharge Date December 06, 2023 Admitting Diagnosis Status post robotic assisted laparoscopic ventral hernia repair with mesh. Postoperative ileus associated with nausea vomiting DS: Discharge Diagnosis Discharge Diagnosis (1) S/P repair of ventral hernia: Code(s): Z98.890 - Other specified postprocedural states; Z87.19 - Personal history of other diseases of the digestive system Status: Acute (2) Ileus: Code(s): K56.7 - Ileus, unspecified Status: Acute (3) Nausea and vomiting: Qualifiers: Vomiting type: unspecified Qualified Code(s): R11.2 - Nausea with vomiting, unspecified Code(s): R11.2 - Nausea with vomiting, unspecified Status: Acute DS: Summary Hospital Course Hospital Course: Patient had an uncomplicated robotic assisted laparoscopic ventral hernia repair with mesh on November 27, 2023. Four days later he presented to the emergency room with progressive abdominal distention and pain. He had episodes of nausea vomiting as well. In the emergency room he had a CT scan abdomen pelvis showing dilated loops of small bowel without a transition point likely consistent with a postoperative ileus. Nasogastric tube was placed and he was admitted to surgical floor hydrate with IV fluids. He was noted to be hypokalemic and received potassium supplementation. Supportive management for his ileus with IV fluids and close observation. His incisions appear to be healing well without any wound complications. Was able given ambulate to the bathroom without difficulty. Eventually his nasogastric tube was removed and he was started on clear liquids. He started passing flatus and was having bowel movements after A suppository. After started having bowel movements he had copious diarrhea which was nonbloody. With this he had hypokalemia and had to be given multiple doses of bolus IV potassium. Eventually was advanced to regular diet which he was tolerating. However tonight straight he he had a single episode of nausea vomiting each night. She wanted to being treated with Zofran. On hospital day 5. He was tolerating regular diet and his bowel movements were loose but getting better. Potassium was normal. He was tolerating regular diet without difficulty. He was able to ambulate without difficulty. He was discharged home in improved condition. Status at Discharge Functional status at discharge: independent ambulation Overall status at discharge: patient is progressing back to baseline Time Spent with Patient Time attestation: Total time spent providing and/or coordinating discharge services: Time spent: Less than 30 minutes Exam Const: General: cooperative, comfortable and no acute distress Resp: Effort & Inspection: normal respiratory effort and able to speak in complete sentences Cardio: Rate: regular rate Rhythm: regular rhythm GI: Other: Abdomen is soft and nondistended. Port site incisions are healing well. No evidence of recurrent hernia. Abdominal binder in place. Neuro: General: oriented to person, patient oriented x3 and CN's II-XI intact bilaterally Psych: Appearance: grossly normal and well kempt Mental Status: mental status grossly normal DS: Data Data Completed and Pending Labs on day of discharge: Preliminary micro results at discharge 12/02/23 06:11 Blood Culture - Preliminary Blood 12/02/23 06:00 Blood Culture - Preliminary Blood 12/01/23 06:56 Blood Culture - Preliminary Blood 12/01/23 06:56 Blood Culture - Preliminary Blood Discharge Plan Discharge Attending physician on discharge: Papa Burton Consulting providers: Corey Penn Discharging Clinician: Papa Burton Anticipated Discharge Date/Time: 12/06/23 15:02 Patient Disposition: Home, Self-Care Activity: may shower Diet: regular Discharge Instructions: Patient to continue wear abdominal binder during dayt
== END 2023-12-06 15:35 | disposition home or self-care (01) | DRG 390 ==
LOC: ANHED 07:22 → ANH3MEDSUR 08:13
PROVIDERS: Internal Medicine Critical Care Medicine; Nurse Practitioner Family; Admitting Provider Surgery; Emergency Provider Student in an Organized Health Care Education/Training Program; PCP Family Medicine; Visit Provider Surgery
DX: K56.7 Ileus, unspecified (principal); E78.5 Hyperlipidemia, unspecified; E86.0 Dehydration; G47.31 Primary central sleep apnea; I48.0 Paroxysmal atrial fibrillation; I44.1 Atrioventricular block, second degree; I12.9 Hypertensive chronic kidney disease with stage 1 through stage 4 chronic kidney disease, or unspecified chronic kidney disease; N18.31 Chronic kidney disease, stage 3a; R19.7 Diarrhea, unspecified; Z90.49 Acquired absence of other specified parts of digestive tract; Z79.82 Long term (current) use of aspirin; Z98.890 Other specified postprocedural states; Z87.891 Personal history of nicotine dependence
CPT/HCPCS: 36415; 71045; 74177; 80048; 80053; 81001; 83605; 83690; 83735; 84100; 84484; 85025; 85027; 85610; 85730; 86140; 86850; 86900; 86901; 87040; 87637; 93005; 96361; 96374; 96375; 99285; A9270; C9113; G0378; J0360; J1885; J2270; J2405; J2550; J2765; J3480; J7030; J7040; Q9967

== ENCOUNTER 2023-12-08 12:34 | Emergency (ER) | payer MEDICARE, SELFPAY ==
--- NOTE | 2023-12-08 12:37 | PC.NURSE ---
unwilling to left the pt sit in waiting room, frustrated about being called about the blood cultures.
[2023-12-08 13:31] VITALS: BP 134/90; PULSE 96; RESP 28; TEMP 36.6; O2SAT 95
--- NOTE | 2023-12-08 13:36 | ED.RECABL ---
HPI - Recheck/Abnormal Lab/Rx General Chief Complaint: Recheck/Abnormal Lab/Rx Stated Complaint: ppositive blood cultures Time Seen by Provider: 12/08/23 13:32 Source: patient and family Mode of arrival: ambulatory Limitations: no limitations History of Present Illness HPI narrative: 73-year-old male presents after being told to report to the emergency department for positive blood culture. Patient presented to the emergency department on 12/01/2023 with nausea and vomiting. He was found to have a postoperative ileus status post a robotic assisted laparoscopic ventral hernia repair. He was admitted to the hospital and had resumption of bowel activity without complications and subsequently discharged. he has been recuperating without complication since. No fevers/chills. He continues to pass flatus. He was discharged with Zofran but has not needed it at home as he is without nausea or vomiting since discharge. He did start having some loose stools, one yesterday and this morning. Patient has abdominal distention but states no changes in the past several weeks. He has a follow-up appointment with his surgeon on 12/11 2023. Related Data Home Medications Medication Instructions Recorded Confirmed cholecalciferol (vitamin D3) 25 25 mcg PO DAILY 12/17/19 12/01/23 mcg (1,000 unit) capsule aspirin 325 mg tablet,delayed 325 mg PO DAILY 10/26/21 12/01/23 release omega 1-ehx-rat-fish oil 1,600 5 ml PO DAILY 11/07/23 12/01/23 mg-500 mg-800 mg/5 mL oral liquid amlodipine 5 mg tablet 5 mg PO HS 11/13/23 12/01/23 zolpidem 10 mg tablet 5 mg PO QHS PRN insomnia 11/13/23 12/01/23 Allergies Allergy/AdvReac Type Severity Reaction Status Date / Time metoclopramide Allergy Intermediate Shakiness Verified 12/08/23 13:38 ON LICENSE OF [facility] Past Medical History Medical History Aortic regurgitation Broken wrist Complex sleep apnea syndrome Dyslipidemia HTN (hypertension) PAF (paroxysmal atrial fibrillation) Plantar fasciitis Second degree heart block Stage 3a chronic kidney disease Umbilical hernia Surgical History Surgical History History of cholecystectomy History of hernia surgery Family History Family History Father Carcinoma of colon Sibling Family history of primary malignant neoplasm of liver Family history of lymphoma Sibling Acute myocardial infarction Social History Social History Smoking packs per day: 1 Smoking cigarettes per day: 20.0 Years smoked: 10 Smoking pack-years: 10.00 Smoking status: Never smoker Tobacco type: cigarettes Second hand tobacco smoke exposure: No Smoking end date: 04/13/88 Alcohol intake: current Drinks per week: 14 Substance use: never Substance use type: does not use Do You Feel Safe in your Home?: Yes Lack of Transportation: No Lack of Food: Never True Current Housing: I Have Housing Concerned About Future Housing: No Difficulty Paying Gas/Electric Bills: No Difficulty Paying for Meds: No Currently Unemployed: No Education: Master's Degree or Higher Difficulty w/ Childcare or Family Care: No Living arrangements: with family Additional living arrangements comments: Occupation/Education: retired Gender identity (if verbalized by the patient): Male Spiritual care concerns: No Agree to blood products: Yes Exam Narrative: GENERAL: well-nourished, and in no acute distress. HEAD: Normocephalic, atraumatic. EYES: Non injected, non icteric ENT: Nares clear, no rhinorrhea or epistaxis. NECK: Supple. CHEST: Speaking in full sentences, non labored. . No respiratory distress. HEART: Regular rate and rhythm. . ABDOMEN: Soft, distended. but nontender to palpation; no rigidity or guarding.
== END 2023-12-08 14:26 | disposition home or self-care (01) ==
LOC: ANHED 14:00
PROVIDERS: Emergency Provider Student in an Organized Health Care Education/Training Program; PCP Family Medicine
DX: Z04.89 Encounter for examination and observation for other specified reasons (principal); I48.0 Paroxysmal atrial fibrillation; I35.1 Nonrheumatic aortic (valve) insufficiency; I12.9 Hypertensive chronic kidney disease with stage 1 through stage 4 chronic kidney disease, or unspecified chronic kidney disease; N18.31 Chronic kidney disease, stage 3a; E78.5 Hyperlipidemia, unspecified; G47.31 Primary central sleep apnea; Z87.891 Personal history of nicotine dependence; Z90.49 Acquired absence of other specified parts of digestive tract
CPT/HCPCS: 99281

== ENCOUNTER 2024-07-30 07:58 | Outpatient (CLI) | payer MEDICARE, SELFPAY ==
--- NOTE | ~2024-07-30 | NM_ITS ---
EXAMINATION: NM ramirez stress w perfusion DATE: 07/30/2024 10:54 INDICATION: Other forms of dyspnea TECHNIQUE: Rest images were obtained following intravenous administration of 10.1 mCi Tc99m tetrofosm in (Myoview). The patient was infused intravenously with Lexiscan (Regadenoson). Then, 33.5 mCi Tc99m tetrofosmin (Myoview) was administered intravenously, and stress images were obtained, initially in the supine position with subsequent repeat post stress images obtained in the prone position. Data wa s reconstructed into short axis and horizontal and vertical long axis SPECT images. Gated SPECT image s were also obtained. COMPARISON: None. FINDINGS: There is diaphragmatic attenuation artifact on the inferior wall of the heart which is more prominent on the rest than the stress images and which normalizes on the repeat post stress imaging obtained in the prone position. There is no definite reversible or fixed perfusion abnormality to sug gest ischemia or infarction. There is normal left ventricular chamber size, wall motion and ejection fraction. Left ventricular ejection fraction measures >70%. IMPRESSION: 1. Normal myocardial perfusion at rest and during stress. 2. Left ventricular ejection fraction measuring >70%. Reviewed, dictated and finalized at location A.
--- NOTE | 2024-07-30 08:21 | EST_ITS ---
Patient Info Name: Lorenzo Dee Age: 73 years : 1950 Gender: Male Ht: 73 in Wt: 210 lbs BSA: 2.23 m2 HR: 61 bpm BP: 140 / 85 mmHg Heart Rhythm: Sinus Rhythm Exam Date: 07/30/2024 9:49 AM Exam Location: Echo Lab Patient Status: Outpatient Admit Date: 07/30/2024 Staff Ordering Physician: Albert Dey DO Attending Provider: Albert Dey DO Exercise Technologist: Edith Mcdonald CT Exercise Physician: Albert Dey DO Exam Type: CA stress ramirez w NM Study Info Indications R06.09 - Other forms of dyspnea A regadenoson stress test was performed. Summary 1. 1. Negative lexiscan stress test for ischemic ST changes by ECG criteria. 2. 2. Baseline hypertension. 3. 3. Nuclear scan to follow and will be reported separately. Please correlate with it. 4. 4. Patient informed of the above results. Protocol: Lexiscan Stress ECG Details Stage: REST Duration (min): 0 min : 56 sec HR (bpm): 65 SBP (mmHg): 140 DBP (mmHg): 85 Stage: REST Duration (min): 10 min : 8 sec HR (bpm): 65 SBP (mmHg): 140 DBP (mmHg): 85 Stage: STAGE 1 Duration (min): 0 min : 59 sec HR (bpm): 64 SBP (mmHg): 148 DBP (mmHg): 82 Stage: RECOVERY Duration (min): 1 min : 0 sec HR (bpm): 71 SBP (mmHg): 148 DBP (mmHg): 82 Stage: RECOVERY Duration (min): 2 min : 0 sec HR (bpm): 65 SBP (mmHg): 148 DBP (mmHg): 82 Stage: RECOVERY Duration (min): 3 min : 0 sec HR (bpm): 61 SBP (mmHg): 143 DBP (mmHg): 80 Stage: RECOVERY Duration (min): 3 min : 41 sec HR (bpm): 64 SBP (mmHg): 143 DBP (mmHg): 80 Rest HR: 65 bpm Peak HR: 82 bpm Rest Sys BP: 140 mmHg Peak Sys BP: 148 mmHg Max Pred HR: 149 bpm % Max Pred HR: 55 % Target HR: 127 bpm Max RPP: 12,136 bpm*mmHg Termination Reason: Completed protocol Cardiac Symptoms: Shortness of breath Total Time: 1 min : 0 sec Rest Dunn BP: 85 mmHg Peak Dunn BP: 82 mmHg Total Dose: 0.4 mg Resting ECG Atrial fibrillation. Stress ECG No ST changes. Arrhythmias No other arrhythmias. Report Signatures
--- NOTE | 2024-07-30 08:21 | ECHO_ITS ---
Patient Info Name: Lorenzo Dee Age: 73 years : 1950 Gender: Male Ht: 74 in Wt: 210 lbs BSA: 2.24 m2 HR: 51 bpm BP: 132 / 90 mmHg Technical Quality: Good Exam Date: 07/30/2024 8:46 AM Exam Location: Echo Lab Patient Status: Outpatient Admit Date: 07/30/2024 Staff Ordering Physician: Albert Dey DO Pourer: Homer Lewis RDCS Attending Provider: Albert Dey DO Referring Physician: Tiburcio SAMANIEGO; Exam Type: CA echo doppler color flow Study Info Indications - noneheumatic aortic valve insufficeny Complete two-dimensional, color flow and Doppler transthoracic echocardiogram is performed. Summary 1. Complete two-dimensional, color flow and Doppler transthoracic echocardiogram is performed. 2. Left ventricular chamber dimension is normal. 3. Left ventricular systolic function is normal, estimated at 60-65%. 4. The left ventricular diastolic function is grade I diastolic dysfunction. 5. E/e' 8 is minimally elevated. 6. There is mild aortic valve sclerosis. 7. There is moderate aortic valve regurgitation. 8. No pulmonary hypertension, estimated pulmonary arterial systolic pressure is 26 mmHg. 9. There is trace pulmonic regurgitation. Left Ventricle E/e' 8 is minimally elevated. Left ventricular chamber dimension is normal. Left ventricular systolic function is normal, estimated at 60-65%. The left ventricular diastolic function is grade I diastolic dysfunction. Right Ventricle Right ventricular systolic function is normal and with normal TAPSE 3.7 cm. Right ventricular chamber dimension is normal. Left Atria Left atrial chamber dimension is normal. Right Atria Right atrial chamber dimension is normal. Aortic Valve The aortic valve is trileaflet. There is mild aortic valve sclerosis. There is no aortic valve stenosis. There is moderate aortic valve regurgitation. Pulmonic Valve There is trace pulmonic regurgitation. Mitral Valve There is no mitral valve stenosis. There is no mitral valve regurgitation. Tricuspid Valve There is no tricuspid valve regurgitation. No pulmonary hypertension, estimated pulmonary arterial systolic pressure is 26 mmHg. Pericardium/Pleural There is no pericardial effusion. Inferior Vena Cava Normal inferior vena cava with >50% collapse upon inspiration consistent with normal right atrial pressure, 5 mmHg. Aorta The aortic root size at the sinus of Valsalva is normal. Left Ventricular Outflow Tract Name Value Normal LVOT 2D LVOT Diameter 2.4 cm LVOT Doppler LVOT Peak Gradient 2 mmHg LVOT Mean Gradient 1 mmHg LVOT VTI 22 cm LVOT VTI/AV VTI Ratio 0.9 LVOT Stroke Volume 96 ml LVOT CO 3.4 l/min LVOT CI 1.5 l/min/m2 Mitral Valve Name Value Normal MV Doppler MV Decel [place]
== END 2024-07-30 07:59 | disposition home or self-care (01) ==
PROVIDERS: PCP Family Medicine; Visit Provider Internal Medicine Cardiovascular Disease
DX: R06.09 Other forms of dyspnea (principal); I35.1 Nonrheumatic aortic (valve) insufficiency
CPT/HCPCS: 78452; 93017; 93306; A9502

== ENCOUNTER 2024-12-11 10:09 | Outpatient (CLI) | payer MEDICARE, SELFPAY | END 2024-12-11 10:10 | disposition home or self-care (01) | PROVIDERS: PCP Family Medicine Adolescent Medicine; Visit Provider Internal Medicine Cardiovascular Disease | DX: R22.41 Localized swelling, mass and lump, right lower limb (principal); M71.21 Synovial cyst of popliteal space [Baker], right knee | CPT/HCPCS: 93971 ==

== ENCOUNTER 2025-02-09 16:05 | Outpatient (CLI) | payer MEDICARE, SELFPAY ==
--- NOTE | ~2025-02-09 | US_ITS ---
EXAMINATION:US venous doppler LE RT INDICATION:Ribeiro's cyst. Hematoma. TECHNIQUE: Multiple grayscale, color flow and Doppler images of the right lower extremity deep venous systems were obtained and reviewed. COMPARISON:No prior studies for comparison. FINDINGS: The common femoral, superficial femoral and popliteal veins demonstrate normal respiratory variation, augmentation and compressibility. Color flow is also seen within the posterior tibial, pe roneal, greater saphenous and profunda veins. IMPRESSION: 1: No lower extremity deep venous thrombosis. Reviewed, dictated and finalized at location A.
--- OUTSIDE RECORDS SUMMARY | 2025-02-09 17:23 | XMS_ITS | Clinical Summary ---
Author Organization [facility] Address [address] [place] [id number] Phone Care Team Providers Care Accountant Supervisor Name Role Phone Madai Ribeiro MD Primary Care Provider [phone] Allergies No known active allergies Medications amLODIPine (NORVASC) 5 MG tablet TK 1 T PO D 01/18/2020 Active Active Problems Problem Noted Date Diagnosed Date Other specified disorders of kidney and ureter 0 12/08/2018 Abnormal result of kidney function study 019 Chronic kidney disease, stage 3 (moderate) 10/25 Essential (primary) hypertension 10/25/2018 Hypertensive chronic kidney disease with stage 1 through stage 4 chronic kidney disease, or unspecified chronic kidney disease 10/25/2018 Immunizations Immunization Administration Dates Next Due Fluzone High-Dose 07/16/2020 Sars-cov-2, Unspecified 01/25/2021 Family History Medical History Relation Comments Malignant neoplastic disease Father Malignant neoplastic disease Sibling Kidney disease Neg Hx Kidney stone Neg Hx Relation Status Comments Father Sibling Social History Tobacco Use Types Packs/Day Years Used Date Smoking Tobacco: Former Cigarettes Q uit: 10/14/1985 Smokeless Tobacco: Never Alcohol Use Standard Drinks/Week Comments Yes 0 (1 standard drink = 0.6 oz pur e alcohol) Sex and Gender Information Value Date Recorded Sex Assigned at Not on file Legal Sex Male 9:56 AM MST Gender Identity Not on file Sexual Orientation Not on file Last Filed Vital Signs Vital Sign Reading Time Taken Comments Blood Pressure 130/70 05/23/2022 1:35 PM CDT Pulse - - Temperature 36 C (96.8 F) 05/23/2022 1:35 PM CDT Respiratory Rate 18 05/23/2022 1:35 PM CDT Oxygen Saturation - - Inhaled Oxygen Concentration - - Weight 94.3 kg (208 lb) 05/23/2022 1:35 PM CDT Height 185.4 cm (6' 1 ) 05/23/2022 1:35 PM CDT Body Mass Index 27.44 05/23/2022 1:35 PM CDT Plan of Treatment Health Maintenance Due Date Last Done Comments Pneumococcal PPSV23/PCV13 65 + Years / Low and Medium Risk (1 of 4 - PCV) 2002 Influenza Vaccine (Season Ended) 2025 Insurance [employer] MEDICARE Care Teams Accountant Supervisor Relationship Specialty Start Date End Date Madai Ribeiro MD [address] [place] [address] PCP - General Internal Medicine 07/04/21
--- OUTSIDE RECORDS SUMMARY | 2025-02-09 17:23 | XMS_ITS | Clinical Summary ---
Author Organization [facility] Address [address] [place] [address] Phone Care Team Providers Care Map Maker Name Role Phone Unavailable Primary Care Provider Unavailabl e Social History Tobacco Use Types Packs/Day Years Used Date Smoking Tobacco: Never Assessed Sex and Gender Information Value Date Recorded Sex Assigned at Not on file Legal Sex Male 5:48 PM CDT Gender Identity Not on file Sexual Orientation Not on file Plan of Treatment Health Maintenance Due Date Last Done Comments DTAP/TDAP/TD VACCINES (1 - Tdap) 1971 COLORECTAL SCREENING 1997 Colorectal Cancer Screening 1997 FIT-DNA Q 3 years 1997 FIT/FOBT Q 1 year 1997 Flex Sig/CT Colonography Q 5 years 1997 PNEUMOCOCCAL VACCINE 50+ YEARS (1 of 1 - PCV) 09/05/20 02 ZOSTER VACCINE (1 of 2) 2002 INFLUENZA VACCINE (#1) 2024 RSV VACCINE (60+ or ) (1 - 1-dose 75+ series) 2027
== END 2025-02-09 16:06 | disposition home or self-care (01) ==
PROVIDERS: PCP Family Medicine; Visit Provider Internal Medicine Cardiovascular Disease
DX: R60.0 Localized edema (principal); S80.11XA Contusion of right lower leg, initial encounter; X58.XXXA Exposure to other specified factors, initial encounter
CPT/HCPCS: 93971

== ENCOUNTER 2025-04-14 00:38 | Day surgery (SDC) | payer MEDICARE, SELFPAY ==
[2025-04-13 12:59] VITALS: BMI 28.8
[2025-04-14] VITALS (16 sets, daily range): BP systolic 131–176; BP diastolic 74–100; PULSE 66–82; RESP 14–18; TEMP 36.3–36.8; O2SAT 94–97; BMI 28.2; BMI 29.3
--- NOTE | ~2025-04-14 | XR_ITS ---
CHEST RADIOGRAPH, PA AND LATERAL CLINICAL HISTORY: 24 hours post pacemaker insertion . COMPARISON: 04/14/2025 dating back to 12/01/2023 TECHNIQUE: PA and lateral views of the chest. FINDINGS The left upper lateralmost lung is partially obscured due to pacemaker generator. Wires project over the right atrium and right ventricle. The remainder of the cardiomediastinal silhouette is otherwise unremarkable. Calcified granuloma within the right mid to lower lung field. Bibasilar atelectasis, left greater than right, an interval change. The lungs are otherwise clear. IMPRESSION: Bibasilar atelectasis, an interval change. Remainder of examination is on changed from previous study performed 24 hours earlier. Reviewed, dictated and finalized at location A. IMPRESSION: Bibasilar atelectasis, an interval change. Remainder of examination is on changed from previous study performed 24 hours yesy caceres.
--- NOTE | ~2025-04-14 | XR_ITS ---
CHEST RADIOGRAPH CLINICAL HISTORY: pacemaker insertion . COMPARISON: 12/01/2023 TECHNIQUE: Single portable view of the chest. FINDINGS The left mid to upper lung field is partially obscured due to pacemaker generator. Wires project over the right atrium and right ventricle. The remainder of the cardiomediastinal silhouette is otherwise unremarkable. The lungs are clear. No left-sided pneumothorax is appreciated. IMPRESSION: No focal infiltrate or effusion. Pacemaker in excellent position without left-sided pneumothorax. Reviewed, dictated and finalized at location A.
--- OUTSIDE RECORDS SUMMARY | 2025-04-14 00:40 | XMS_ITS | Clinical Summary ---
Author Organization [facility] [place] [address] Address [address] [place] [address] Care Team Providers Care Computer Game Designer Name Role Phone Bere Echeverria MD Primary Care Provider [phone] Allergies No known active allergies Medications amLODIPine (NORVASC) 5 mg tablet Take 1 tablet (5 mg total) by mouth daily Active Xarelto 15 mg tablet Take 1 tablet (15 mg total) by mouth nightly 5 Active zolpidem (AMBIEN) 5 mg tablet TAKE 1 TABLET BY MOUTH EVERY DAY AT BEDTIME NEEDED FOR INSOMNIA 5 Active triamcinolone (KENALOG) 0.1 % cream 5 Active ergocalciferol (VITAMIN D) 50,000 unit capsule Take 1 capsule (50,000 Units total) by mouth once a week Active azelastine (ASTELIN) 137 mcg (0.1 %) nasal spray Administer 1 spray into each nostril 2 (two) times a day Use in each nostril as directed Active Active Problems Problem Noted Date Diagnosed Date 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 Primary hypertension 03/16/2025 Encounters Date Type Department Care Team Description 03/16/2025 8:30 AM CDT Office Visit [facility] Medical [facility] Cardiology [address] [place] [phone] Lew Gonzalez MD Primary hypertension (Primary Dx); Atrioventricular block; Lipid screening 03/16/2025 Orders Only [facility] Cardiology [address] [place] [phone] Lew Gonzalez MD Atrioventricular block (Primary Dx); Pacemaker 03/16/2025 Telephone [facility] Cardiology [address] [place] [address] Lew Gonzalez MD from Last 3 Months Social History Tobacco Use Types Packs/Day Years Used Date Smoking Tobacco: Never Assessed Sex and Gender Information Value Date Recorded Sex Assigned at Not on file Legal Sex Male 2:47 PM CDT Gender Identity Not on file Sexual Orientation Not on file Last Filed Vital Signs Vital Sign Reading Time Taken Comments Blood Pressure 142/64 03/16/2025 8:33 AM CDT Pulse 86 03/16/2025 8:33 AM CDT Temperature - - Respiratory Rate 14 03/16/2025 8:33 AM CDT Oxygen Saturation 93% 03/16/2025 8:33 AM CDT Inhaled Oxygen Concentration - - Weight 98.4 kg (217 lb) 03/16/2025 8:33 AM CDT Height 185.4 cm (6' 1) 03/16/2025 8:33 AM CDT Body Mass Index 28.63 03/16/2025 8:33 AM CDT Plan of Treatment Health Maintenance Due Date Last Done Comments Colon Cancer Screening-Colonoscopy 1950 Depression Screening 1950 Hepatitis C Screening 1950 Hepatitis B Screening 1970 Abdominal Aortic Aneurysm (A AA) Screen 2017 Well Visit 65+ 2017 Covid-19 Vaccine (2023-2 5 season) 2024 09/10/2022, 10/03/2021, 01/25/2021, Additional history exists Fall Risk Assessment 03/16/2026 03/16/2025 DTaP/Tdap/Td Vaccine (2 - Td or Tdap) 04/17/2026 04/17/2016, 05/17/1997 Zoster Vaccine Completed 10/21/2019, 08/18/2019 Influenza Vaccine Completed 09/14/2024, , 09/10/2022, Additional history exists Pneumococcal vaccine 65+ Completed 09/14/2024, 03/2021 Procedures Procedure Name Priority Date/Time Associated Diagnosis Comments POCT LIPID PANEL Routine 03/16/2025 8:43 AM CDT Lipid screening ELECTROCARDIOGRAM REPORT Routine 025 8:34 AM CDT Atrioventricular block from Last 3 Months Results * (ABNORMAL) POCT lipid panel (03/16/2025 8:43 AM CDT) Cholesterol, POC 148 <200 MG/DL HDL, POC 33(A) >=40 mg/dL Triglycerides, POC 201(A) <=149 mg/dL LDL Cholesterol POC 74 <=129 mg/dL Chol/HDL Ratio, POC 4.5 NONE Non-HDL Cholesterol, POC 115 NONE mg/dL Cholesterol Total, POC 148 30 - 199 mg/dL Capillary blood 03/16/2025 8 :43 AM CDT us Lew Gonzalez MD POINT OF CARE TEST ORDER GLADIS Final Result * Electrocardiogram Report (03/16/2025 8:34 AM CDT) us Lew Gonzalez MD ECG ORDERABLES Final Re sult from Last 3 Months Insurance [facility] MEDICARE ADVANTAGE Care Teams Computer Game Designer Relationship Specialty Start Date End Date Bere Echeverria MD [address] [place] [address] PCP - General Family Medicine 02/08/25
--- OUTSIDE RECORDS SUMMARY | 2025-04-14 00:40 | XMS_ITS | Referral Summary ---
Author Organization [facility] [place] [address] [facility] [address] Address [address] [place] [address] Care Team Providers Care Help Desk Intern Name Role Phone Bere Echeverria MD Primary Care Provider [phone] Encounters Date Type Department Care Team Description 03/16/2025 Orders Only [facility] Medical [facility] Cardiology [address] [place] [address] [place] [phone] Lew Gonzalez MD Atrioventricular block (Primary Dx); Pacemaker 03/16/2025 Telephone [facility] Cardiology [address] [facility] [address] [place] [address] Lew Gonzalez MD 03/16/2025 8:30 AM CDT Office Visit [facility] Cardiology [address] [place] [address] [place] [phone] Lew Gonzalez MD Primary hypertension (Primary Dx); Atrioventricular block; Lipid screening from Last 3 Months Allergies No known active allergies Medications amLODIPine [...] Date 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
--- OUTSIDE RECORDS SUMMARY | 2025-04-14 00:40 | XMS_ITS | Clinical Summary ---
Author Organization [facility] Address [address] [place] [address] Phone Care Team Providers Care Territory Sales Manager Medical Name Role Phone Unavailable Primary Care Provider [...] (1 of 2) 2002 INFLUENZA VACCINE (#1) 2025 RSV VACCINE (60+ or ) (1 - 1-dose 75+ series) 2027
--- OUTSIDE RECORDS SUMMARY | 2025-04-14 00:40 | XMS_ITS | Clinical Summary ---
Author Organization [facility] Address [address] [place] [id number] Phone Care Team Providers Care Mathematics Professor Name Role Phone Madai Ribeiro MD Primary Care Provider [phone] Allergies No known active allergies Medications amLODIPine [...] 1:35 PM CDT Height 185.4 cm (6' 1) 05/23/2022 1:35 PM CDT Body Mass Index 27.44 05/23/2022 1:35 PM CDT Plan of Treatment Health Maintenance Due Date Last Done Comments Pneumococcal PPSV23/PCV13 65 + Years / Low and Medium Risk (1 of 2 - PCV) 2002 Influenza Vaccine (Season Ended) 2025 Insurance [employer] MEDICARE Care Teams Mathematics Professor Relationship Specialty Start Date End Date Madai Ribeiro MD [address] [place] [address] PCP - General Internal Medicine 07/04/21
--- OUTSIDE RECORDS SUMMARY | 2025-04-14 00:40 | XMS_ITS | Clinical Summary ---
Author Organization [facility] Address [address], [facility] [address] [place] [address] Phone Care Team Providers Care Butt Welder Name Role Phone Madai Ribeiro MD Primary Care Provi juan Social History Tobacco Use Types Packs/Day Years Used Date Smoking Tobacco: Never Assessed Sex and Gender Information Value Date Recorded Sex Assigned at Not on file Legal Sex Male 10:55 PM CDT Gender Identity Not on file Sexual Orientation Not on file Plan of Treatment Health Maintenance Due Date Last Done Comments Hepatitis C Virus (HCV) Screening 1950 Cologuard 1997 Immunochemical Fecal Occult Blood 1997 Pneumococcal Immunization (5 0+ years) (1 of 1 - PCV) 2002 Zoster Immunization (2 of 2) 12/16/2019 10/21/2019 Colonoscopy 04/13/2024 04/13/2019 Colorectal Cancer Screening 04/13/2024 SARS-COV-2 Immunization ( season) 2024 10/03/2021, 12/22/2020, 11/24/2020 Influenza Immunization (Seas on Ended) 2025 Respiratory Syncytial Virus (RSV) Immunization (Adult) (1 - 1-dose 75+ series) 2027 DTaP/Tdap/Td Immunization Discontinued 2015, 05/17/1997 TdaP Immunization Completed 04/17/2016 Hepatitis B Immunization Aged Out No longer eligible based on patient's age to complete this topic Human Papillomavirus (HPV) Immunization Aged Out No longer eligible based on patient's age to complete this topic Meningococcal Immunization (ACWY) Aged Out No longer eligible based on patient's age to complete this topic Rotavirus Immunization Aged Out No lo nger eligible based on patient's age to complete this topic Procedures Procedure Name Priority Date/Time Associated Diagnosis Comments COLONOSCOPY Routine 04/13/2019 from Last 3 Months or Most Recently Relevant to Health Maintenance Results * COLONOSCOPY (04/13/2019) Willi Keenan DO PROCEDURE/MINOR SURGICAL ORDERA BLES Final Result from Last 3 Months or Most Recently Relevant to Health Maintenance Insurance MEDICARE C [employer] on file Care Teams Butt Welder Relationship Specialty Start Date End Date Madai Ribeiro MD [address] [place] [address] PCP - General Family Medicine 09/12/18
[2025-04-14 09:10] LABS: Hematocrit 46.0 % (42.0-52.0); Hemoglobin 15.9 g/dL (14.0-18.0); Mean Corpuscular HGB Conc 34.6 g/dl (32-36); Mean Corpuscular Hemoglobin 30.7 pg (26-34); Mean Corpuscular Volume 88.8 fl (80-100); Platelet Count Result 134 k/mm3 (150-375); Red Blood Count 5.18 M/mm3 (4.6-6.20); White Blood Count 5.1 K/mm3 (4.5-10.0)
[2025-04-14 09:12] LABS: Immature Granulocyte Percent A 0.2 % (0-0.5); Lymphocytes Absolute Auto 1.58 K/mm3 (0.9-3.2); Nucleated Red Blood Cells Absolute Auto 0.000 K/mm3 (0.0-0.012); Nucleated Red Blood Cells Perc 0.0 % (0.0-0.2)
[2025-04-14 09:22] LABS: Anion Gap 10 mmol/L (4-12); Blood Urea Nitrogen 18 mg/dL (9-20); Calcium 9.1 mg/dL (8.4-10.2); Carbon Dioxide 21 mmol/L (22-30); Chloride 109 mmol/L (98-107); Estimated CRCL calculation 49 ml/min; Estimated Glomerular Filt Rate 50; Glucose 118 mg/dL (65-110); Potassium 4.1 mmol/L (3.4-5.0); Sodium 140 mmol/L (137-145)
--- NOTE | 2025-04-14 10:11 | P.SEDATION_ITS ---
Moderate Sedation Note-Pt Data Patient Data Diagnosis: AV block with asystolic pause of 6 seconds Paroxysmal atrial fibrillation Present Complaint: No complaint Procedure to be performed/Plan: Pacemaker implantation Allergies Allergy/AdvReac Type Severity Reaction Status Date / Time metoclopramide AdvReac Intermediate Shakiness Verified 04/14/25 08:57 Home Medications ?Medication ?Instructions ?Recorded ?Confirmed ?Type cholecalciferol (vitamin D3) 25 25 mcg PO DAILY 12/17/19 04/13/25 History mcg (1,000 unit) capsule amlodipine 5 mg tablet See Rx Instructions .Route 08/27/24 04/13/25 Rx .COMPLEX #90 tabs azelastine 205.5 mcg (0.15 %) 2 spray intranasal QAM AND QPM 09/14/24 04/13/25 History nasal spray (Astepro Allergy) zolpidem 5 mg tablet 5 mg PO QHS PRN insomnia #30 tabs 10/28/24 04/13/25 Rx rivaroxaban 15 mg tablet (Xarelto) See Rx Instructions .Route 01/18/25 04/13/25 Rx .COMPLEX #30 tabs Sedation/Anesthesia: No previous sedation/anesthesia problems (including family history). [facility] Past Medical History Medical History (Updated 02/02/25 @ 11:10 by Albert Dey DO) Hematoma of right lower extremity BMI 28.0-28.9,adult HTN (hypertension) Stage 3a chronic kidney disease PAF (paroxysmal atrial fibrillation) Complex sleep apnea syndrome Aortic regurgitation Dyslipidemia Second degree heart block Plantar fasciitis Broken wrist Umbilical hernia Surgical History Surgical History History of umbilical hernia repair Robotic assisted laparoscopic incarcerated periumbilical ventral hernia repair with transabdominal preperitoneal (CINDY) placement of Bard soft mesh. Hernia defect equals 2x1cm 11/27/23 PDC History of hernia surgery History of cholecystectomy Family History Family History Father Carcinoma of colon Sibling Family history of primary malignant neoplasm of liver Family history of lymphoma Acute myocardial infarction Sibling Cancer of neck Mother Heart disease Social History Social History Smoking packs per day: 1 Smoking cigarettes per day: 20.0 Years smoked: 10 Smoking pack-years: 10.00 Smoking status: Former smoker Tobacco type: cigarettes Second hand tobacco smoke exposure: Yes Smoking end date: 04/13/88 Alcohol intake: current Drinks per week: 14 Substance use: never Substance use type: does not use Do You Feel Safe in your Home?: Yes Lack of Transportation: No Lack of Food: Never True Current Housing: I Have Housing Concerned About Future Housing: No Difficulty Paying Gas/Electric Bills: No Difficulty Paying for Meds: No Currently Unemployed: No Education: Master's Degree or Higher Difficulty w/ Childcare or Family Care: No Living arrangements: with family Additional living arrangements comments: Occupation/Education: retired Additional occupation/education comments: [employer] truck driver/teacher-special education Gender identity (if verbalized by the patient): Male Spiritual care concerns: No Agree to blood products: Yes Mod Sed Physical Exam Physical Exam Pre Procedural Exam: Normal: Appearance, Neck, Throat, Airway, Lungs, Heart Size, Heart Rate, Heart Rhythm, Neuro Exam and Extremities Hours since solid foods: 12 Hours since liquid intake: 12 Mallampati Classification: class II Internal Medicine - PN: Obj Da Vital Signs Vital Signs: Vital Signs - 24 hr 04/14/25 09:00 Temperature 36.3 C L Pulse Rate 66 Respiratory Rate 14 Blood Pressure 150/78 H Pulse Oximetry 95 Oxygen Delivery Room Air Labs 04/14/25 09:06 04/14/25 09:06 Labs: Laboratory Results - last 24 hr 04/14/25 09:06 WBC 5.1 RBC 5.18 Hgb 15.9 Hct 46.0 MCV 88.8 MCH 30.7 MCHC 34.6 RDW 13.6 Plt Count 134 L MPV 8.7 Immature Gran % (Auto) 0.2 Neut % (Auto) 56.3 Lymph % (Auto) 31.2 [place] % (Auto) 8.3 Eos % (Auto) 3.2 Baso % (Auto) 0.8 Lymph # (Auto) 1.58 [place] # (Auto) 0.4 Eos # (Auto) 0.2 Baso # (Auto) 0.0 Abs Immat Gran (auto) 0.01 Absolute Neuts (auto) 2.9 Absolute Nucleated RBC 0.000 Band Neutrophils % Not Reportable Nucleated RBC % 0.0 Platelet Estimate Not Reportable Schistocytes Not Reportable Sodium 140 Potassium 4.1 Chloride 109 H Carbon Dioxide 21 L Anion Gap 10 BUN 18 D Creatinine 1.39 H Estim Creat Clear Calc 49 Estimated GFR 50 L Glucose 118 H Calcium 9.1 ASA Classification/Sedation ASA Classification/Sedation ASA Class: III Emergent: No Risks: Risks, benefits and alternatives explained and patient/family accepted plan for sedation. Patient re-evaluated immediately prior to sedation.
--- NOTE | 2025-04-14 11:57 | ECG_ITS ---
Test Date: 2025-04-14 12:20:26 Measurements Intervals [place] Rate: 65 P: 87 WI: 196 QRS: -83 QRSD: 188 T: 71 QT: 514 QTc: 537 Interpretive Statements ELECTRONIC ATRIAL PACEMAKER ELECTRONIC VENTRICULAR PACEMAKER ABNORMAL RHYTHM ECG No previous ECG available for comparison Electronically Signed On 04-14-2025 12:56:16 CDT by Lew Gonzalez M.D.
--- NOTE | 2025-04-14 11:58 | P.PCNCC_ITS ---
Cardiac Cath Procedure Note Date of procedure:: 04/14/25 Performing physician:: Lew Gonzalez MD Indication:: Symptomatic bradycardia with high-grade AV block Brief clinical history:: This is a 74-year-old man has paroxysmal atrial fibrillation and also has evidence of high-grade AV block with 6 sec asystolic pauses. For treatment of this a dual-chamber pacemaker implantation has been recommended Procedure Procedure performed:: Implantation of dual-chamber pacemaker Sedation/Medication given:: Fentanyl 50 mg Versed 2 mg Case start time 11:07 a.m. Case end time 11:52 a.m. Sedation provided by Daniel Fisher RN, trained observer Access site:: Left subclavian vein Estimated blood loss:: 20 cc Procedure note:: Patient was brought to the cardiac catheterization lab in the postabsorptive state where the left anterior chest wall was prepped and draped in normal sterile fashion. Anesthesia was infiltrated with 20 cc of 1% lidocaine the region of the pocket. An incision was then made along the line of anesthesia about 1 in below the clavicle from mid clavicular line to the deltopectoral. Following this sharp and blunt dissection to dissect the subcutaneous tissue to the level of the prepectoral fascia. Electrocautery used to provide cutaneous hemostasis. Following this along the prepectoral fascial plane block dissection was used to create a pacemaker pocket this was then packed with antibiotic soaked 4 x 4. Attention was then turned to venous access. Using the 2 6 [employer] SafeSheath kits the subclavian vein was punctured twice through the pocket advancing both guidewires under fluoroscopic visualization to the level of the right atrium. Using the 6 [employer]uan safe sheaths the pacemaker leads detailed below were then advanced into the venous circulation into the level of the right atrium. Attention was then turned to positioning the ventricular lead. The stylet was withdrawn and a 3 cc syringe was used to a J-tip stylet which was then used to steer the lead through the right ventricle out to the pulmonary artery position. Face that was placed into the lead it was withdrawn and placed into the right ventricular apex. Appropriate pacing and sensing performance was then demonstrated a 10 volts stimulation showed no sign of extracardiac stimulation. Following this attention was turned to positioning the atrial lead. A preformed atrial stylet was placed into the lead was positioned into the right atrial appendage. The fixation screw was deployed upon withdrawal of the stylet the lead tip was fixed into position. Appropriate pacing and sensing performance was also documented using the analyzer and again at 10 volts stimulus showed no sign of extracardiac stimulation. Following this the leads were secured to the base of the pocket using the suture sleeves and 2-0 silk ties. Retained sponge was removed from the pocket was then irrigated with antibiotic infused saline. The pacemaker generator was connected to the leads using the torque wrench and the entire assembly was placed into the newly created pocket. This was then closed in layers using 3-0 Vicryl in interrupted fashion for the subcutaneous tissue and 4-0 Vicryl in a running subcuticular fashion for the skin. The wound was dressed with an Aquacel dressing. Postop antibiotics analgesics chest x-ray and ECG ordered. Procedure was well tolerated and uncomplicated. Findings:: Patient received a Biotronik dual-chamber pacemaker model Amvia Edge [id number]. Serial number [id number]. Device is programmed the DDD/CLS mode lower rate limit 60 upper rate limit 130. The atrial lead is a Biotronik screw-in bipolar lead model Solia [id number]. Serial number [id number]. The P-waves are sensed at 4.7 mV threshold is 1.0 volts at 0.4 milliseconds impedance 488 Ohms. The ventricular lead is a Biotronik screw-in bipolar lead model Solia S 60 [id number]. Serial number [id number]. The R-waves are sensed at 14.5 mV threshold is 0.6 volts at 0.4 milliseconds impedance 781 Ohms Conclusion:: Successful uncomplicated implantation of permanent Biotronik dual-chamber pacing system for treatment of symptomatic bradycardia with sick sinus syndrome in this 74-year-old man who has paroxysmal atrial fibrillation and also has high-grade AV block. Lew Gonzalez MD [facility]
[2025-04-14] MEDS: SODIUM CHLORIDE 0.9% IV 1,000 ML 50 ML IV CONT (14:15)
--- NOTE | 2025-04-14 14:57 | PC.NURSE ---
Patient arrived from cathode washer. Telemetry applied. PPM site assessed. Patient A&O
[2025-04-14] MEDS: ZOLPIDEM TARTRATE (*CRX) 5 MG TABLET PO (22:16)
[2025-04-15] VITALS (10 sets, daily range): BP systolic 137–154; BP diastolic 84–88; PULSE 68–92; RESP 16–32; TEMP 36.4–36.6; O2SAT 93–97
[2025-04-15] MEDS: ceFAZolin 1 GM/NS 50 ML 1 GM/50 ML BAG IVPB (01:55)
--- NOTE | 2025-04-15 12:00 | P.DS_ITS ---
DS: Admitting Diagnosis Discharge Date 04/15/2025 Admitting Diagnosis High grade AV block DS: Summary Hospital Course Hospital Course: Admitted overnight for observation following elective pacemaker placement for high grade AV block. Did not have any postprocedural complications. Follow up CXR showed some atelectasis but no pneumothorax. Pacer interrogation with normally functioning device. No complaints today including shortness of breath or chest pain. Stable and will be discharged today. Time Spent with Patient Time attestation: Total time spent providing and/or coordinating discharge services: Exam Const: General: comfortable, no acute distress, alert and awake Orientation/consciousness: patient oriented x3 HENMT: Head: normal to inspection Eyes: General: appearance normal, both eyes and all related structures Pupils: Equal, round and reactive pupils present Neck: Neck: normal visual inspection, supple and no JVD Carotids: normal carotid upstroke Resp: Effort & Inspection: normal respiratory effort Auscultation: clear to auscultation bilaterally Cardio: Rate: regular rate Rhythm: regular rhythm Heart sounds: S1 normal heart sound present, S2 normal heart sound present and no murmurs GI: Auscultation: normal bowel sounds Skin: General skin exam: normal color Other: Left pectoral incision covered with sterile dressing - clean, dry, intact. No hematoma. Neuro: General: patient oriented x3 Cranial nerves: Yes Equal, round and reactive pupils present Extrem: General: normal to inspection Psych: Appearance: grossly normal Mental Status: mental status grossly normal Discharge Plan Discharge Patient Disposition: Home Discharge Instructions: [facility] [address] [place] [address] DISCHARGE INSTRUCTIONS - POST PACEMAKER Activity 1. No driving until you are seen in the office for your incision check. 2. No lifting, pushing or pulling more than 5 pounds with affected arm for 1 MONTH 3. No lifting affected arm above shoulder height for 1 MONTH 4. Wear immobilizer/sling only if you are unable to remember the above activity restrictions. Recommend that it be worn at night. 5. You may shower AFTER you are seen for incision check on 04/21/25___ but no tub baths, swimming pool or hot tub for 1MONTH Wound Care 1. Do not attempt to remove the Aquacel dressing. Leave dressing undisturbed until incision check at the office visit. Keep dressing dry. 2. When you are able to shower AFTER you are seen for your incision check in the office do not rub or scrub the incision. Pat dry after shower. NO lotions, powders, creams or ointments are to be applied to the incision 3. A small amount of tenderness, puffiness and bruising around the site is normal. Call if any significant pain, drainage, swelling, or redness around the site *For any other questions please call the office at [phone]. Office hours are 8AM 4:30PM Saturday through Saturday. Patient Language: [place]de[place] Stand Alone Forms: General Discharge Instructions Follow-up/Referrals: Lew Gonzalez MD [Physician] - (Follow up with [facility] on 04/21 at 11:00 am.) Discharge Medications: Continued cholecalciferol (vitamin D3) 25 mcg (1,000 unit) capsule 25 mcg PO DAILY azelastine [Astepro Allergy] 205.5 mcg (0.15 %) spray,non-aerosol 2 spray intranasal QAM AND QPM Rx Instructions: administer into each nostril zolpidem 5 mg tablet 5 mg PO QHS PRN (Reason: insomnia) Qty: 30 5RF Held Xarelto 15 mg tablet See Rx Instructions .ROUTE .COMPLEX Qty: 30 5RF Hold Instructions: Resume on 04/21/25. HOLD UNTIL INCISION CHECK APPOINTMENT IN 1 WEEK Dose Instruction: TAKE 1 TABLET BY MOUTH EVERY EVENING Rx Instructions: TAKE 1 TABLET BY MOUTH EVERY EVENING No Action diltiazem HCl [Tiazac] 180 mg capsule,extended release 24 hr 180 mg PO DAILY Qty: 90 2RF
== END 2025-04-15 16:02 | disposition home or self-care (01) ==
LOC: ANHCATHLAB 08:42 → ANHIMU 14:35
PROVIDERS: PCP Family Medicine Adolescent Medicine; Visit Provider Specialist
PROC: 0JH606Z Insertion of Pacemaker, Dual Chamber into Chest Subcutaneous Tissue and Fascia, Open Approach (ICD-10-PCS; CPT 33208; principal; 2025-04-14 10:00)
DX: I48.0 Paroxysmal atrial fibrillation (principal); I44.1 Atrioventricular block, second degree; I12.9 Hypertensive chronic kidney disease with stage 1 through stage 4 chronic kidney disease, or unspecified chronic kidney disease; N18.31 Chronic kidney disease, stage 3a; Z79.01 Long term (current) use of anticoagulants; Z87.891 Personal history of nicotine dependence
CPT/HCPCS: 33208; 36415; 71045; 71046; 80048; 85025; 93005; A9270; C1779; C1785; J0690; J2003; J2250; J3010; J7030; J7040